=== PATIENT | female | born 1960 | race American Indian/Alaskan Native ===

== ENCOUNTER 2016-12-15 13:27 | Outpatient (CLI) | payer OTHER ==
--- NOTE | 2016-12-15 14:33 | Mammography Report ---
Bilateral mammogram: Compare to 04/25/15. CAD study utilized. Findings: Predominance adipose tissue bilaterally. No mass or microcalcification. Benign axillary nodes. Impression: Benign findings. Annual followup recommended. BI-RADS CATEGORY: 2 = Benign ACR BI-RADS MAMMOGRAPHIC CODES: 0 = Needs additional imaging evaluation; 1 = Negative; 2 = Benign; 3 = Probably benign; 4 = Suspicious; 5 = Malignant; 6 = Known biopsy-proven malignancy COMMENT: 1. Dense breast tissue, i.e., adenosis, fibrocystic changes, etc., may obscure an underlying neoplasm. 2. Approximately 10% of cancers are not detected with mammography. 3. A negative mammography report should not delay biopsy if a clinically suspicious mass is present. COMMENT: Patient follow-up letters are generated in [employer].
== END 2016-12-15 13:28 | disposition home or self-care (01) ==
LOC: MAMMO 13:27
PROVIDERS: ATTEND Internal Medicine
DX: Z12.31 Encounter for screening mammogram for malignant neoplasm of breast (principal)
CPT/HCPCS: 77067; G0202

== ENCOUNTER 2018-01-04 09:56 | Day surgery (SDC) | payer OTHER ==
[~2018-01-04 09:56] MED LIST: ANCEF/STERILE WATER 2 GM/20 ML 2 GM/20 ML SYRINGE IV NR; DEMEROL IV PRN; DILAUDID IV PRN; LACTATED RINGERS 1,000 ML IV SCH; VERSED IV NR; ZOFRAN IV PRN
--- NOTE | 2018-01-04 11:00 | Anesthesia Day of Surgery ---
Anesthesia Day of Surgery - Day of Surgery Patient Examined: Yes Patient H&P Reviewed: Yes Patient is NPO: Yes
--- NOTE | 2018-01-04 11:01 | Anesthesia Consultation ---
Anesthesia Consult and Med Hx Date of service: 01/04/18 - Airway Anesthetic Teeth Evaluation: Edentulous ROM Head & Neck: Adequate Mental/Hyoid Distance: Adequate Mallampati Class: Class II Intubation Access Assessment: Probably Good - Pulmonary Exam CTA: Yes - Cardiac Exam Cardiac Exam: RRR - Pre-Operative Health Status ASA Pre-Surgery Classification: ASA2 Proposed Anesthetic Plan: General (GA with LMA) - Pulmonary Hx Smoking: Yes (/ PPD X 20 YRS) Hx Sleep Apnea: No (DEBBIE PRE SCREEN LOW RISK.) - Cardiovascular System Hx Hypertension: Yes (X 5 YRS) Hx Heart Murmur: Yes (CAUSES NO PROBLEMS) - Endocrine Hx Hypothyroidism: Yes (REMOVAL OF THYROID-NO MEDS) - Hematic Hx Anemia: Yes (NOT RECENT) - Other Systems Hx Cancer: No
--- NOTE | 2018-01-04 11:12 | Post Operative Note ---
Pre-op diagnosis: heme cystitis Post-op diagnosis: same Findings: inflamation lmaede Procedure: cysto cystogram rogstephanie bx Anesthesia: GETElias Surgeon: BERLIN LINARES Estimated blood loss: minimal Pathology: none Condition: stable Disposition: PACU
--- NOTE | 2018-01-04 11:13 | Discharge Summary ---
Short Stay Discharge Plan Activity: other (no straining ) Weight Bearing Status: Full Weight Bearing Diet: low fat, low salt Special Instructions: other (in fluids ) Durable Medical Equipment Needed Upon Discharge: other (mckenna cath care) Additional Instructions: Lo fat, Low Salt Diet. No straining Follow up with: JOSH GILES MD [Primary Care Provider] - 7 Days BERLIN LINARES MD [Staff Physician] - 7 Days Forms: Outpatient Surgery DC Inst.
--- NOTE | 2018-01-04 11:44 | Post Anesthesia Evaluation ---
- Post Anesthesia Evaluation Patient Participated: Yes Airway Patent: Yes Stable Respiratory Function: Yes Nausea/Vomiting: No Temp > 96.8F: Yes Pain Manageable: Yes Adequeate Hydration: Yes Anesthesia Complications: No
[2018-01-04] MEDS ORDERED: DIPRIVAN 10 MG/ML IV ONE (11:59)
[2018-01-04] MEDS ORDERED: WATER FOR IRRIG STERILE IR ONE (12:00)
[2018-01-04] MEDS ORDERED: ANCEF/STERILE WATER 2 GM/20 ML IV NR (12:00)
[2018-01-04] MEDS ORDERED: ROBINUL ONE (12:01)
[2018-01-04] MEDS ORDERED: XYLOCAINE MPF 2% ONE (12:01)
[2018-01-04] MEDS ORDERED: ZOFRAN ONE (12:01)
[2018-01-04] MEDS ORDERED: DECADRON ONE (12:01)
[2018-01-04] MEDS ORDERED: GARAMYCIN ONE (12:07)
[2018-01-04] MEDS ORDERED: SUBLIMAZE ONE (12:16)
[2018-01-04 13:20] VITALS: BP 155/81
--- NOTE | 2018-01-04 13:25 | Operative Report ---
PREOPERATIVE DIAGNOSES: Chronic cystitis, nondiabetic. POSTOPERATIVE DIAGNOSES: Chronic cystitis, nondiabetic. PROCEDURE: Cystoscopy, cystogram, small biopsy, and retrograde. SURGEON: Rodrigo Anguiano MD ANESTHESIA: General. FINDINGS: This is a woman with chronic inflammation, hematuria, foul odor in the urine. She denies pneumaturia. She has been not very compliant. She now presents for cystoscopy. DESCRIPTION OF PROCEDURE: The patient brought to the operating room and placed on the operating table. Following induction of anesthesia, placed in lithotomy position, prepped and draped in sterile fashion. Cystourethroscopy showed a very inflamed bladder with some left exudate and inflammation. I did not see a fistulous tract. This was mostly in the posterior wall. Vaginal examination was initially normal. We did a cystogram. We did not see any reflux. We did not want to fill her up too much because of potential infection. Minimal retrograde showed no persistent filling defect. There was no obvious fistulous tract. It is possible in this inflammation, it is a microscopic area, but did not see it. She did not have pneumaturia. We did not see air on the CT scan. At this point, we irrigated her bladder of this exudate material, I did not see any foreign bodies and we left the catheter. I spoke to the family. Small tiny biopsy was obtained and was cauterized. The patient brought to recovery in stable condition. JOB# [id number] REESE/TD
--- NOTE | 2018-01-04 13:48 | Fluoroscopy Report ---
FLUOROSCOPY RETROGRADE UROGRAPHY: HISTORY: UTI. FINDINGS: Fluoroscopy was provided by radiology during retrograde urography by the urologist. 4 fluoroscopic images were captured. There is adequate filling of the ureters and intrarenal collecting systems with no filling defects or anatomic abnormalities identified. Please correlate with the procedural report if needed. Bladder biopsy was performed per the operative notes. IMPRESSION: Retrograde pyelograms within normal limits.
--- NOTE | 2018-01-04 13:49 | Fluoroscopy Report ---
FLUOROSCOPY CYSTOGRAM STATIC History: UTI. Findings: A single fluoroscopic image of the abdomen was obtained with contrast agent in the bladder. There is no gross bladder filling defects or extravasation. Bladder biopsy was performed per the operative note. Please correlate as needed.
== END 2018-01-04 13:50 | disposition home or self-care (01) ==
LOC: OR 09:56
PROVIDERS: ATTEND Urology
DX: N30.21 Other chronic cystitis with hematuria (principal); N32.89 Other specified disorders of bladder; I10 Essential (primary) hypertension; K21.9 Gastro-esophageal reflux disease without esophagitis; E89.0 Postprocedural hypothyroidism; F17.210 Nicotine dependence, cigarettes, uncomplicated; Z87.440 Personal history of urinary (tract) infections; Z79.899 Other long term (current) drug therapy; Z90.710 Acquired absence of both cervix and uterus; Z86.2 Personal history of diseases of the blood and blood-forming organs and certain disorders involving the immune mechanism
CPT/HCPCS: 52204; 74420; 88305; A4217; C1758; J1100; J1580; J2250; J2405; J2704; J3010; J7120; Q9967; 74430

== ENCOUNTER 2018-05-31 20:17 | Inpatient (IN) | payer OTHER ==
--- NOTE | 2018-05-31 20:32 | Emergency Department Report ---
HPI - General Time Seen by Provider: 05/31/18 20:27 - HPI HPI: Charge nurse triage The patient is a 58-year-old female presenting with a chief complaint of altered mental status. Per EMS family states the patient's last known well time was 05/29/2018. Family reported the patient had been in bed since that time. Family states the patient was "acting weird" following day which included complaining of shortness of breath and slurred speech Location: Mental status Duration: [See above] Quality: Altered Severity: Moderate Modifying factors: [see above] Context: [see above] Mode of transportation: [not driving] ED Past Medical Hx - Past Medical History Hx Hypertension: Yes (X 5 YRS) Hx GERD: Yes Additional medical history: Gout - Surgical History Past Surgical History?: No - Family History Family history: no significant - Social History Smoking Status: Unknown if ever smoked Substance Use Type: Alcohol - Medications Home Medications: Home Medications Medication Instructions Recorded Confirmed Last Taken Type Allopurinol [Zyloprim] 300 mg PO PRN PRN 08/05/17 01/04/18 01/04/18 09:00 History Atenolol [Tenormin] 100 mg PO DAILY 08/05/17 01/04/18 01/04/18 09:00 History Colchicine 0.6 mg PO PRN PRN 08/05/17 01/04/18 01/04/18 09:00 History Ibuprofen [Motrin 800 MG tab] 800 mg PO PRN PRN 08/05/17 12/31/17 Unknown Histor y cloNIDine [Catapres] 0.1 mg PO TID 08/05/17 01/04/18 01/04/18 09:00 History ED Review of Systems ROS: Stated complaint: STROKE Other details as noted in HPI Comment: Unobtainable due to pts medical conditions Physical Exam - Physical Exam Physical Exam: GENERAL: The patient is well-developed well-nourished female lying on stretcher moaning not responding to verbal stimuli. [] HEENT: Normocephalic. Atraumatic. Extraocular motions are intact. Patient has moist mucous membranes. NECK: Supple. Trachea midline CHEST/LUNGS: Clear to auscultation. There is no respiratory distress noted. HEART/CARDIOVASCULAR: Regular. There is no tachycardia. There is no gallop rub or murmur. ABDOMEN: Abdomen is soft, nontender. Patient has normal bowel sounds. There is no abdominal distention. SKIN: There is no rash. There is no edema. There is no diaphoresis. NEURO: The patient is altered and only moans occasionally. Patient does not speak or follow commands. Patient is observed moving all 4 extremities MUSCULOSKELETAL: There is no evidence of acute injury. ED Medical Decision Making - Lab Data Result diagrams: 05/31/18 21:20 05/31/18 21:20 Laboratory Tests 05/31/18 05/31/18 05/31/18 20:50 21:00 21:00 WBC RBC Hgb Hct MCV MCH MCHC RDW Plt Count Lymph % (Auto) [place] % (Auto) Eos % (Auto) Baso % (Auto) Lymph # [place] # Eos # Baso # Seg Neutrophils % Seg Neutrophils # PT INR APTT Thrombin Time Sodium Potassium Chloride BUN Creatinine Estimated GFR BUN/Creatinine Ratio Glucose POC Glucose 195 H Calcium Total Bilirubin ALT Alkaline Phosphatase Ammonia Total Creatine Kinase CK-MB (CK-2) CK-MB (CK-2) Rel Index Troponin T Total Protein Albumin Albumin/Globulin Ratio TSH Free T4 Urine Color Red Urine Turbidity Turbid Urine pH 7.0 Ur Specific [place] 1.020 Urine Protein >500 Urine Glucose (UA) Neg Urine Ketones Tr Urine Blood Lg Urine Nitrite Neg Urine Bilirubin Neg Urine Urobilinogen < 2.0 Ur Leukocyte Esterase Mod Urine WBC (Auto) > 182.0 H Urine RBC (Auto) > 182.0 Urine Bacteria (Auto) 4+ Urine WBC Clumps 2+ Urine Mucus 3+ Urine Opiates Screen Presumptive negative Urine Methadone Screen Presumptive negative Ur Barbiturates Screen Presumptive negative Ur Phencyclidine Scrn Presumptive negative Ur Amphetamines Screen Presumptive negative U Benzodiazepines Scrn Presumptive negative Urine Cocaine Screen Presumptive negative U Marijuana (THC) Screen Presumptive negative Drugs of Abuse Note Disclamer Plasma/Serum Alcohol 05/31/18 05/31/18 05/31/18 21:20 21:20 21:20 WBC 19.6 H RBC 3.00 L Hgb 10.1 Hct 33.5 MCV 112 H MCH 34 H MCHC 30 RDW 16.7 H Plt Count 236 Lymph % (Auto) [employer] [place] % (Auto) [employer] Eos % (Auto) [employer] Executive Baso % (Auto) Global [employer] Executive Lymph # Global [employer] Executive [place] # Global [employer] Executive Eos # Global [employer] Executive Baso # Global [employer] Executive Seg Neutrophils % Global [employer] Executive Seg Neutrophils # Global [employer] Executive PT 22.0 H INR 1.79 H APTT 36.6 Thrombin Time Sodium Potassium Chloride BUN Creatinine Estimated GFR BUN/Creatinine Ratio Glucose POC Glucose Calcium Total Bilirubin ALT Alkaline Phosphatase Ammonia Total Creatine Kinase CK-MB (CK-2) CK-MB (CK-2) Rel Index Troponin T < 0.010 Total Protein Albumin Albumin/Globulin Ratio TSH Free T4 Urine Color Urine Turbidity Urine pH Ur Specific [place] Urine Protein Urine Glucose (UA) Urine Ketones Urine Blood Urine Nitrite Urine Bilirubin Urine Urobilinogen Ur Leukocyte Esterase Urine WBC (Auto) Urine RBC (Auto) Urine Bacteria (Auto) Urine WBC Clumps Urine Mucus Urine Opiates Screen Urine Methadone Screen Ur Barbiturates Screen Ur Phencyclidine Scrn Ur Amphetamines Screen U Benzodiazepines Scrn Urine Cocaine Screen U Marijuana (THC) Screen Drugs of Abuse Note Plasma/Serum Alcohol 05/31/18 05/31/18 05/31/18 21:20 21:20 21:20 WBC RBC Hgb Hct MCV MCH MCHC RDW Plt Count Lymph % (Auto) [place] % (Auto) Eos % (Auto) Baso % (Auto) Lymph # [place] # Eos # Baso # Seg Neutrophils % Seg Neutrophils # PT INR APTT Thrombin Time 18.4 Sodium 136 L Potassium 4.7 Chloride 98.1 BUN 58 H Creatinine 4.7 H Estimated GFR 11 BUN/Creatinine Ratio 12 Glucose 191 H POC Glucose Calcium 7.2 L Total Bilirubin 0.70 ALT 15 Alkaline Phosphatase 190 H Ammonia 392.0 H Total Creatine Kinase 156 H CK-MB (CK-2) 2.8 CK-MB (CK-2) Rel Index 1.7 Troponin T < 0.010 Total Protein 8.3 H Albumin 2.9 L Albumin/Globulin Ratio 0.5 TSH Free T4 Urine Color Urine Turbidity Urine pH Ur Specific [place] Urine Protein Urine Glucose (UA) Urine Ketones Urine Blood Urine Nitrite Urine Bilirubin Urine Urobilinogen Ur Leukocyte Esterase Urine WBC (Auto) Urine RBC (Auto) Urine Bacteria (Auto) Urine WBC Clumps Urine Mucus Urine Opiates Screen Urine Methadone Screen Ur Barbiturates Screen Ur Phencyclidine Scrn Ur Amphetamines Screen U Benzodiazepines Scrn Urine Cocaine Screen U Marijuana (THC) Screen Drugs of Abuse Note Plasma/Serum Alcohol 05/31/18 05/31/18 21:20 21:20 WBC RBC Hgb Hct MCV MCH MCHC RDW Plt Count Lymph % (Auto) [place] % (Auto) Eos % (Auto) Baso % (Auto) Lymph # [place] # Eos # Baso # Seg Neutrophils % Seg Neutrophils # PT INR APTT Thrombin Time Sodium Potassium Chloride BUN Creatinine Estimated GFR BUN/Creatinine Ratio Glucose POC Glucose Calcium Total Bilirubin ALT Alkaline Phosphatase Ammonia Total Creatine Kinase CK-MB (CK-2) CK-MB (CK-2) Rel Index Troponin T Total Protein Albumin Albumin/Globulin Ratio TSH 1.130 Free T4 0.54 L Urine Color Urine Turbidity Urine pH Ur Specific [place] Urine Protein Urine Glucose (UA) Urine Ketones Urine Blood Urine Nitrite Urine Bilirubin Urine Urobilinogen Ur Leukocyte Esterase Urine WBC (Auto) Urine RBC (Auto) Urine Bacteria (Auto) Urine WBC Clumps Urine Mucus Urine Opiates Screen Urine Methadone Screen Ur Barbiturates Screen Ur Phencyclidine Scrn Ur Amphetamines Screen U Benzodiazepines Scrn Urine Cocaine Screen U Marijuana (THC) Screen Drugs of Abuse Note Plasma/Serum Alcohol < 0.01 - EKG Data -: EKG Interpreted by Me EKG shows normal: sinus rhythm Rate: normal - EKG Data When compared to previous EKG there are: previous EKG unavailable Interpretation: nonspecific ST-T wave jim (T-wave inversions in leads 1 and aVL) - Radiology Data Radiology results: report reviewed (CT head), image reviewed (CT head, chest x- ray) interpreted by me: Chest [id number] infiltrate Findings [facility] [address] [place] [address] Cat Scan Report Signed Patient: LEVY BOWIE MR#: [id number] : 1960 Acct:[id number] Age/Sex: 58 / F ADM Date: 05/31/18 Loc: ED Attending Dr: Ordering Physician: GEORGE ANTON MD Date of Service: 05/31/18 Procedure(s): CT head/brain wo con Accession Number(s): [id number] cc: GEORGE ANTON MD PROCEDURE: CT HEAD/BRAIN WO CON TECHNIQUE: Computerized tomography of the head was performed without contrast material. CT DOSE LENGTH PRODUCT: mGycm HISTORY: neuro deficits <6hrs or sx present upon awakening COMPARISONS: None . FINDINGS: Skull and scalp: Normal . Paranasal sinuses: Normal . Ventricles and subarachnoid spaces: Normal . Cerebrum: No evidence of hemorrhage, acute infarction or mass . Cerebellum and brainstem: No evidence of hemorrhage, acute infarction or mass . Vasculature: Normal . IMPRESSION: Normal Examination . Dr. Anton was notified by telephone at 8:54 PM This document is electronically signed by Edgar Brito MD., May 31 2018 08:50:20 PM ET Transcribed By: CO Dictated By: EDGAR BRITO MD Electronically Authenticated By: EDGAR BRITO MD Signed Date/Time: 05/31/182052 DD/ 38 TD/TT: 05/31/182039 - Differential Diagnosis ICH, hypoglycemia, CVA, Critical care attestation.: If time is entered above; I have spent that time in minutes in the direct care of this critically ill patient, excluding procedure time. ED Disposition Clinical Impression: Altered mental status, Hepatic encephalopathy, Renal insufficiency, UTI (urinary tract infection), Pneumonia Disposition: OP ADMIT IP TO THIS HOSP Is pt being admited?: Yes Does the pt Need Aspirin: Yes Condition: Serious Instructions: Bacterial Pneumonia (ED) Referrals: HAVEN PRADO MD [Primary Care Provider] - 3-5 Days Time of Disposition: 22:39 (hospitalist notified (Dr Justin))
--- NOTE | 2018-05-31 20:44 | Consultation ---
History of Present Illness History of present illness: [facility] Impression: Patient with worsening mental status over the last 2 days resulting in obtundation today. Slowly progressive decline would argue against a stroke, but rule out with MRI. Broad differential at this point, though. Not a tpa candidate due to: out of window Not an ROB candidate due to: out of window Differential Diagnosis: 1. Cardioembolic stroke 2. Small vessel disease/lacune 3. Thromboembolic, [id number] mechanism 4. Hypercoagulable state-related infarct 5. Transient ischemic attack 6. Thrombotic mechanism, large artery disease 7. Toxic/metabolic encephalopathy 8. Seizure Comments: Door time: 2012 [facility] contacted: 2016 [facility] at bedside: 2019 NIHSS assessment time: 2031 (pt in CT on log in) Recommendations: MRI brain wo Toxic/metabolic screenig EEG inpatient neurology consultation Inpatient stroke evaluation as per Neurology/ Internal Medicine Discussed with ED MD --------- CC: stroke alert History of Present Illness Patient is a58 year old woman with a history of HTN and gout. Last seen normal 2 days ago. Since then has been laying in bed and having slurred speech. Nephew found her today in the garage on the floor minimally responsive. Diagnostic: CT head wo - nothing acute Exam: NIHSS score: 32 She has eyes closed, just moans, not following commands. Gaze centered. No blink to threat. No oculocephalics. Face symmetric. Flaccid in all limbs. No response to nox stim in any limbs. Medical Decision Making: - Extensive number of diagnosis or management options are considered above. - Extensive amount of complex data reviewed. - High risk of complication and/or morbidity or mortality are associated with differential diagnostic considerations above. - There may be Uncertain outcome and increased probability of prolonged functional impairment or high probability of severe prolonged functional impairment associated with some of these differential diagnosis. Medical Data Reviewed: 1.Data reviewed include clinical labs, radiology, Medical Tests; 2.Tests results discussed w/performing or interpreting physician; 3.Obtaining/reviewing old medical records; 4.Obtaining case history from another source; 5.Independent review of image, tracing or specimen. Patient was informed the Neurology Consult would happen via telehealth (remote video) and consented to receiving care in this manner. Medications and Allergies Allergies Allergy/AdvReac Type Severity Reaction Status Date / Time No Known Allergies Allergy Verified 08/05/17 14:02 Home Medications Medication Instructions Recorded Confirmed Last Taken Type Allopurinol [Zyloprim] 300 mg PO PRN PRN 08/05/17 01/04/18 01/04/18 09:00 History Atenolol [Tenormin] 100 mg PO DAILY 08/05/17 01/04/18 01/04/18 09:00 History Colchicine 0.6 mg PO PRN PRN 08/05/17 01/04/18 01/04/18 09:00 History Ibuprofen [Motrin 800 MG tab] 800 mg PO PRN PRN 08/05/17 12/31/17 Unknown History cloNIDine [Catapres] 0.1 mg PO TID 08/05/17 01/04/18 01/04/18 09:00 History - Level of Consciousness 1a. Level of Consciousness: resp stimuli/obtunded - LOC Questions 1b. LOC Questions: aphasic - LOC Command 1c. LOC Commands: performs no tasks correctly - Best Gaze 2. Best Gaze: normal - Visual 3. Visual: bilateral hemianopia - Facial Palsy 4. Facial Palsy: normal symmetrical movement - Motor Arm 5a. Motor Arm Left: no movement 5b. Motor Arm Right: no movement - Motor Leg 6a. Motor Leg Left: no movement 6b. Motor Leg Right: no movement - Limb Ataxia 7. Limb Ataxia: absent - Sensory 8. Sensory: coma/unresponsive - Best Language 9. Best Language: mute/global aphasia - Dysarthria 10. Dysarthria: mute/anarrthric - Extinction and Inattention 11. Extinction/Inattention: no abnormality - Scoring Total Score: 32 Stroke Severity: Severe Stroke
--- NOTE | 2018-05-31 20:53 | Cat Scan Report ---
PROCEDURE: CT HEAD/BRAIN WO CON TECHNIQUE: Computerized tomography of the head was performed without contrast material. CT DOSE LENGTH PRODUCT: mGycm HISTORY: neuro deficits <6hrs or sx present upon awakening COMPARISONS: None . FINDINGS: Skull and scalp: Normal . Paranasal sinuses: Normal . Ventricles and subarachnoid spaces: Normal . Cerebrum: No evidence of hemorrhage, acute infarction or mass . Cerebellum and brainstem: No evidence of hemorrhage, acute infarction or mass . Vasculature: Normal . IMPRESSION: Normal Examination . Dr. Bacon was notified by telephone at 8:54 PM This document is electronically signed by Edgar Amaro MD., May 31 2018 08:50:20 PM ET
[2018-05-31] MEDS ORDERED: DIPRIVAN 10 MG/ML 1,000 MG/100 ML BOTTLE IV SCH (21:15)
[2018-05-31 21:41] LABS: Bacteria,Urine 4+ /HPF (Negative); Bilirubin,Urine NEG (Negative); Blood,Urine LG (Negative); Color,Urine Red (Yellow); Mucus,Urine 3+ /HPF; Urobilinogen,Urine < 2.0 mg/dL (<2.0)
[2018-05-31 21:42] LABS: Amphetamine Screen,Urine PRESUMPTIVE NEGATIVE; Benzodiazepines Screen,Urine PRESUMPTIVE NEGATIVE; Cannabinoid Screen,Urine PRESUMPTIVE NEGATIVE; Cocaine Screen,Urine PRESUMPTIVE NEGATIVE; Methadone Screen,Urine PRESUMPTIVE NEGATIVE; Opiate Screen,Urine PRESUMPTIVE NEGATIVE
[2018-05-31 21:45] LABS: Protein,Urine >500 mg/dL (Negative); RBC,Urine > 182.0 /HPF (0.0-6.0); WBC,Urine > 182.0 /HPF (0.0-6.0)
[2018-05-31 21:47] LABS: Mean Corpuscular HGB Conc 30 % (30-34); Platelet Count 236 K/mm3 (140-440); Red Cell Distribution Width 16.7 % (13.2-15.2)
[2018-05-31] MEDS ORDERED: ROCEPHIN/NS 2 GM/100 ML 2 GM/100 ML BAG IV ONE (21:47)
[2018-05-31 21:48] LABS: INR 1.79 (0.87-1.13); Partial Thromboplastin Time 36.6 Sec. (24.2-36.6)
[2018-05-31 22:04] LABS: Creatine Kinase MB 2.8 ng/mL (0.0-4.0); Hematocrit 33.5 % (30.3-42.9); Hemoglobin 10.1 gm/dl (10.1-14.3); Mean Corpuscular Volume 112 fl (79-97)
[2018-05-31 22:06] LABS: Alanine Aminotransferase 15 units/L (7-56); Albumin 2.9 g/dL (3.9-5); BUN/Creatinine Ratio 12; Blood Urea Nitrogen 58 mg/dL (7-17); Calcium 7.2 mg/dL (8.4-10.2); Hemolysis Index 46
[2018-05-31 22:11] LABS: Free T4 (Free Thyroxine) 0.54 ng/dL (0.76-1.46)
[2018-05-31 22:43] LABS: Band Neutrophils # (Manual) 7.4 K/mm3; Basophils % (Manual) 0 % (0.0-1.8); Eosinophils % (Manual) 0 % (0.0-4.3); Total Cells Counted 100
[2018-05-31 22:44] LABS: Anisocytosis 1+; Macrocytosis 2+
[2018-05-31 22:45] LABS: Hypochromasia 1+
[2018-05-31] MEDS ORDERED: SODIUM BICARBONATE IV ONE (23:00)
--- NOTE | 2018-05-31 23:24 | XRay Report ---
PROCEDURE: XR CHEST 1V AP TECHNIQUE: Chest radiograph single view. HISTORY: altered mental status COMPARISONS: None . FINDINGS: Heart: Normal. Mediastinum/Vessels: Normal. Lungs/Pleural space: There are left lower lobe pulmonary infiltrates. There are no effusions or pneu mothoraces. Bony thorax: No acute osseous abnormality. Life support devices: None. IMPRESSION: Heart size is normal.. There are left lower lobe pulmonary infiltrates. There are no effusions or pneumothoraces. This document is electronically signed by Edgar Amaro MD., May 31 2018 11:22:01 PM ET
[2018-05-31] MEDS ORDERED: ZOFRAN IV PRN (23:37)
[2018-05-31] MEDS ORDERED: COLCHICINE PO PRN (23:38)
[2018-05-31] MEDS ORDERED: ZYLOPRIM PO PRN (23:38)
[2018-05-31] MEDS: CEPHULAC PR ONE (23:55)
[2018-06-01] MEDS: CEPHULAC PR ONE (03:19)
[2018-06-01] MEDS ORDERED: CEPHULAC PO SCH (06:00)
[2018-06-01] MEDS ORDERED: CATAPRES PO SCH (08:00)
--- NOTE | 2018-06-01 09:11 | History and Physical Report ---
CHIEF COMPLAINT: Change in mental status. HISTORY OF PRESENTING ILLNESS: The patient is a 58-year-old female, brought in by EMS after family found her to be acting strange. The patient was noted to be in good usual normal state of health up to 05/29/2018 and the family started seeing her acting strange, dropping things and behaving in a confused manner. Also the patient was noted to be having slurred speech and shortness of breath and she was brought in for evaluation and one of the family members say that the patient drinks alcohol heavily. PAST MEDICAL HISTORY: Pertinent for hypertension, gastroesophageal reflux disease, gout. PAST SURGICAL HISTORY: Unremarkable. FAMILY HISTORY: Family history is noncontributory. SOCIAL HISTORY: The patient does not smoke, but drinks alcohol heavily and does not use illicit drugs. MEDICATIONS: The patient's home medications include ibuprofen 800 mg by mouth, frequency unknown; allopurinol 300 mg by mouth, frequency unknown; atenolol 100 mg by mouth daily; clonidine 0.1 mg by mouth 3 times daily and colchicine 0.6 mg by mouth, frequency unknown. ALLERGIES: There are no known drug allergies. REVIEW OF SYSTEMS: CONSTITUTIONAL: There is no fever, no chills, no diaphoresis. HEENT: There is no headache or sore throat. CARDIOVASCULAR SYSTEM: There is no chest pain or orthopnea. RESPIRATORY SYSTEM: Shortness of breath is present. There is no cough. GASTROINTESTINAL SYSTEM: There is no nausea, no vomiting, no abdominal pain, diarrhea or constipation. NEUROLOGICAL SYSTEM: Change in mental status noted. Slurred speech noted. No numbness. MUSCULOSKELETAL SYSTEM: There is no joint pain or swelling. DERMATOLOGICAL SYSTEM: There is no skin rash or itching. GENITOURINARY SYSTEM: There is no dysuria, hematuria or flank pain. Rest of system review is normal. PHYSICAL EXAMINATION: GENERAL: At the time of exam, the patient was found to be lethargic, arousable, able to communicate and not in acute distress. VITAL SIGNS: Shows normal temperature with pulse of 86, respiratory rate of 30, blood pressure 125/74, O2 sat of 99% on room air. HEENT: Showed pupils to be equal, round, reactive to light and accommodating. Extraocular muscles are intact. NECK: Neck is supple with no JVD or carotid bruit. CARDIOVASCULAR SYSTEM: Show normal first and second heart sounds with no gallops or murmurs. LUNGS: Show good air entry on both sides of the lungs with no abnormal breath sounds. GASTROINTESTINAL SYSTEM: Show abdomen to be full, soft, nontender with no organomegaly or rigidity. NEUROLOGIC: Neuro exam shows the patient to be lethargic, arousable, confused. No focal deficit. MUSCULOSKELETAL SYSTEM: Show no joint swelling or tenderness. DERMATOLOGIC SYSTEM: Show no skin rash. GENITOURINARY SYSTEM: Showing no costovertebral angle tenderness. PERTINENT LABORATORY AND IMAGING STUDIES: The patient has CT of the head with no contrast done that was normal and also the patient had chest x-ray done and chest x-ray shows possible left lower lobe pneumonia with infiltrates. Lab results; the patient's lab results shows CBC with high white count of 19,600, normal hemoglobin, normal hematocrit with CBC differential showing elevated segmented neutrophil count. The patient's coagulation studies show high INR of 1.79 with elevated PTT of 22. The patient's chemistry show low sodium of 136, low CO2 of ____, elevated BUN of 58 and elevated creatinine of 4.7. The patient's blood glucose was equally high with a value of 191. The patient's ammonia level is very high with a value of 392. The patient's albumin level is low with a value of 2.9. The patient's TSH level was unremarkable. The free T4 is low with a value of 0.54. The patient's urinalysis showed red turbid urine with trace urine ketones, large urine blood, moderate urine leukocyte esterase, high urine WBC of greater than 182, 4+ bacteria with urine toxicology being unremarkable. DIAGNOSES: 1. Hepatic encephalopathy. 2. Left lung pneumonia. 3. Urinary tract infection. 4. Renal insufficiency. PLAN OF CARE: 1. The patient will be admitted to telemetry. 2. The patient will be on neuro check q. 2 hours. 3. The patient will have a Nephrology consult with Dr. Smiley because of renal insufficiency that is likely acute kidney injury. 4. The patient will be on lactulose 20 gram q. 8 hours. 5. The patient will be on IV ceftriaxone 1 gram daily and IV Zithromax 500 mg daily for treatment of pneumonia. 6. The patient will be on 5000 units of heparin subcutaneous q. 12 for deep venous thrombosis prophylaxis and will be on Zofran 4 mg IV every 8 hours as needed for nausea and vomiting. 7. The patient will be on oxygen by nasal cannula 2 liters per minute. JOB# [id number] OCN/NTS
[2018-06-01] MEDS ORDERED: ADRENALIN ONE (10:00)
[2018-06-01] MEDS ORDERED: SODIUM BICARBONATE IV ONE (10:00)
[2018-06-01] MEDS ORDERED: ATROPINE 0.1% (CARDIAC) ONE (10:00)
[2018-06-01] MEDS ORDERED: ZITHROMAX 500 MG in NACL 0.9% 250ML 250 ML IV SCH (10:00)
[2018-06-01] MEDS ORDERED: NON-FORMULARY (Atenolol [Tenormin] 100 MG) PO SCH (10:00)
[2018-06-01] MEDS ORDERED: HEPARIN SUB-Q SCH (10:00)
[2018-06-01] MEDS ORDERED: TENORMIN PO SCH (10:00)
[2018-06-01] MEDS ORDERED: ROCEPHIN/NS 1 GM/50 ML 1 GM/50 ML BAG IV SCH (10:00)
--- NOTE | 2018-06-01 10:01 | Consultation ---
History of Present Illness - Reason for Consult Consult date: 06/01/18 acute renal failure - History of Present Illness This is a 58-year-old -[place] female with past medical history si gnificant for hypertension, gout, nephrolithiasis, and chronic alcohol abuse who presented to the emergency department with progressively worsening altered mental status over the past 3-4 days. Patient is a poor historian at this time and the history was obtained by reviewing the chart as well as discussing with her family who is currently at bedside during my examination. Profoundly her altered mental status and confusion had progressively worsened over the weekend. She has been fairly noncommunicative during this time. Basically just moaning in discomfort and pain. Overall appetite and by mouth intake has been affected during this time period as well. She lives with family. Her last alcoholic drink was on Thursday. Per family she has never had any similar hospitalization in the past. Initial laboratory studies noted and ammonia level of greater than 380. Nephrology was consulted secondary to acute kidney injury. We do not have another baseline creatinine to compare to at this time. Urinalysis is also concerning for possible urinary tract infection and patient is started on IV antibiotics. Patient was evaluated by neurology last night in the emergency room department. Neurology evaluation was reviewed. She underwent also a CT scan of the head. Past History Past Medical History: hypertension, other (nephrolithiasis, gout) Past Surgical History: No surgical history Social history: lives with family, alcohol abuse Family history: hypertension Medications and Allergies Allergies Allergy/AdvReac Type Severity Reaction Status Date / Time No Known Allergies Allergy Verified 08/05/17 14:02 Home Medications Medication Instructions Recorded Confirmed Last Taken Type Allopurinol [Zyloprim] 300 mg PO PRN PRN 08/05/17 01/04/18 01/04/18 09:00 History Atenolol [Tenormin] 100 mg PO DAILY 08/05/17 01/04/18 01/04/18 09:00 History Colchicine 0.6 mg PO PRN PRN 08/05/17 01/04/18 01/04/18 09:00 History Ibuprofen [Motrin 800 MG tab] 800 mg PO PRN PRN 08/05/17 12/31/17 Unknown History cloNIDine [Catapres] 0.1 mg PO TID 08/05/17 01/04/18 01/04/18 09:00 History Active Meds: Active Medications Allopurinol (Zyloprim) 300 mg PO DAILY PRN PRN Reason: Gout Atenolol (Tenormin) 100 mg PO DAILY EMA Clonidine HCl (Catapres) 0.1 mg PO TID EMA Colchicine (Colchicine) 0.6 mg PO DAILY PRN PRN Reason: Gout pain Heparin Sodium (Porcine) (Heparin) 5,000 unit SUB-Q Q12HR EMA Azithromycin 500 mg/ Sodium (Chloride) 250 mls @ 250 mls/hr IV Q24HR EMA Ceftriaxone Sodium (Rocephin/Ns 1 Gm/50 Ml) 1 gm in 50 mls @ 100 mls/hr IV Q24HR EMA; Protocol Lactulose (Cephulac) 20 gm PO Q8HR EMA Last Admin: 06/01/18 06:58 Dose: 20 gm Documented by: Ondansetron HCl (Zofran) 4 mg IV Q8H PRN PRN Reason: Nausea And Vomiting Review of Systems ROS unobtainable: due to mental status Exam - Vital Signs Vital signs: Vital Signs Pulse Resp 87 30 H 05/31/18 20:46 05/31/18 20:46 - General Appearance General appearance: obese, moderate distress, chronically ill, anxious EENT: ATNC, PERRL Neck: Present: neck supple, trachea midline Respiratory: Clear to Ascultation Heart: regular, S1S2 Gastrointestinal: Present: distended Integumentary: no rash, warm and dry Neurologic: confused, disoriented Psychiatric: agitated Results - Lab Results 05/31/18 21:20 05/31/18 21:20 Most recent lab results Calcium 7.2 mg/dL (8.4-10.2) L 05/31/18 21:20 Assessment and Plan - Patient Problems (1) Acute kidney injury Current Visit: Yes Status: Acute Plan to address problem: Likely prerenal in etiology in the setting of the aforementioned UTI, pneumonia and decreased by mouth intake. Rule out possible acute tubular necrosis versus possible acute hepatorenal syndrome, though less likely HRS. We'll obtain a renal ultrasound at this time for further evaluation. We will also order urine electrolytes studies at this time as well as urine protein to creatinine ratio. Avoid any nephrotoxins at this time. We will have patient started on IV fluid hydration. We'll obtain an ABG given her significant metabolic acidemia noted on her serum BMP levels from yesterday night. We will favor to start patient on D5 water with 3 Amps of sodium bicarbonate at a rate of 75 mL an hour. (2) Hepatic encephalopathy Current Visit: Yes Status: Acute Plan to address problem: Started on lactulose therapy. We'll continue to monitor response and repeat ammonia levels. (3) Metabolic acidosis Current Visit: Yes Status: Acute Plan to address problem: The setting of her acute renal injury. We'll also order lactic acid level at this time. We'll also order an ABG for further assessment. We will start p atient on sodium bicarbonate drip as previously mentioned. Monitor daily. (4) Pneumonia Current Visit: Yes Status: Acute Plan to address problem: Please ensure that antibiotics are dosed appropriately for her renal clearance. (5) UTI (urinary tract infection) Current Visit: Yes Status: Acute Plan to address problem: Please initiate antibiotics are dosed appropriately at this time for her given her decreased renal clearance.
[2018-06-01] MEDS ORDERED: NACL 0.9% 500 ML ONE (10:05)
[2018-06-01] MEDS ORDERED: NACL 0.9% 1000 ML ONE (10:05)
--- NOTE | 2018-06-01 10:53 | Event Note ---
Date: 06/01/18 JUDE HUFF was called to the fourth floor. When I arrived the patient was pulseless and had just been intubated by the respiratory therapist. Patient had good color change on the CO2 monitor reveals bilateral breath sounds with good chest rise with bagging. Patient was receiving adequate chest compressions. Patient received 1 amp of epinephrine and order was given to give another amp of epinephrine and an amp of bicarbonate on my arrival. After approximately 2 minutes we did a pulse check and the patient was noted to be in atrial fibril lation. Patient was defibrillated at 200 J with a biphasic Alan. CPR was continued. Patient also given D50 empirically. Hospitalist staff arrived and stated that the labs have been checked and this morning the patient's bicarbonate was 3 and order was made to give 2 additional amps of bicarbonate. The principal physician duties were handed off to the hospitalist. I then went to the emergency department to inquire interosseous gun and return to the patient had returned to spontaneous circulation but I arrived. An IO was placed in the left proximal tibia. There was good return of blood and marrow. Line was able to be flushed.
[2018-06-01] MEDS ORDERED: VANCOMYCIN/NS 1 GM/250 ML 1 GM/250 ML BAG IV SCH (11:00)
[2018-06-01] MEDS ORDERED: SODIUM BICARBONATE 150 MEQ in D5W 1,000 ML IV SCH (11:00)
[2018-06-01] MEDS ORDERED: VANCOMYCIN PHARMACY TO DOSE IV SCH (11:00)
[2018-06-01] MEDS ORDERED: INTROPIN DRIP 800 MG/D5W 250 ML 800 MG/250 ML BAG IV SCH (11:00)
[2018-06-01] MEDS ORDERED: ADRENALIN 8 MG in NACL 0.9% 250ML 242 ML IV ONE (11:00)
--- NOTE | 2018-06-01 11:29 | Event Note ---
Date: 06/01/18 JUDE HUFF was called to the fourth floor. When I arrived ACLS was initiated and patient had been intubated by the respiratory therapist. Patient received multiple round of epinephrene, NaBicarbonate, Ns bolus, calcium chloride, shocked twice and amioderone iv push. After 18 minutes of Acls her pulse returned. Few minutes later she coded again and ACLS again initiated. She was on PEA. Received epinephrene, atropine, bicarbonate, calcium chloride, Mg, started on dopamin drip. Was successful to regain pulse after 2nd caediac arrest. Please see code sheet for details. She was placed on bicarbonate drip, epinephrene drip. She was then transferred to ICU. Stat lab/EKG ordered. Updated family and answered all questions.
[2018-06-01] MEDS ORDERED: LEVOPHED DRIP 4 MG/NS 250 ML 4 MG/250 ML BAG IV ONE (11:34)
[2018-06-01 11:47] LABS: Mean Corpuscular HGB Conc 30 % (30-34); Platelet Count 111 K/mm3 (140-440); Red Blood Count 1.36 M/mm3 (3.65-5.03)
[2018-06-01 11:54] LABS: Mean Corpuscular Volume 111 fl (79-97)
[2018-06-01 11:56] LABS: Hematocrit 15.1 % (30.3-42.9); Hemoglobin 4.6 gm/dl (10.1-14.3)
[2018-06-01 12:05] LABS: BUN/Creatinine Ratio 11; Blood Urea Nitrogen 60 mg/dL (7-17); Hemolysis Index 16
[2018-06-01] MEDS ORDERED: NACL 0.9% 500 ML 500 ML IV NR (12:12)
[2018-06-01] MEDS ORDERED: D50W (25GM) Syringe IV PRN (12:13)
--- NOTE | 2018-06-01 12:22 | Progress Note ---
Assessment and Plan Assessment and plan: 58-year-old woman with past medical history of hypertension, gout, nephrolithiasis, chronic alcohol abuse. She was brought in by family for altered mental status 4 days. She was seen in the ER on 05/31/2008. She was found to have left-sided pneumonia, she was also found to have elevated ammonia level which was 392. She had elevated creatinine of 64.7, BUN of 58, albumin of 3.2, transaminitis, urina lysis showed greater than 182 white blood cells. She received Rocephin and azithromycin for treatment of ammonia. She received 100 mEq of bicarbonate IV push. She was on lactulose 20 every 8 hours. This morning the patient was noted to stiffen up in bed. Started vomiting profusely, shortly after started vomiting the patient had bradycardia, then PEA. She lost a pulse, and received CPR. -She received CPR 3 times. She received multiple rounds of epinephrine, calcium, bicarbonates, she receives IV fluid bolus. She was then put on bicarbonate drip, and 2 pressors -ABG does confirm a severe metabolic acidosis, labs show elevated glucose in the 300s. Her labs also show a drop in her hemoglobin to 4, she was intubated and placed on the ventilator CT head shows no acute findings Chest x-ray confirms left-sided pneumonia Diagnoses Shock Severe sepsis with multiorgan failure UTI Acute kidney injury due to ATN Acute blood loss anemia Suspected acute GI bleed Acute hypoxic respiratory failure Severe metabolic acidosis Hyperglycemia Hypocalcemia Hepatic encephalopathy Acute metabolic encephalopathy Plan -Continue IV fluids, continue patient's on 2 pressors -Expand antibiotics to broad-spectrum, ID consult -Obtain blood and urine cultures -PICC line team to place PICC line, patient currently has IO and peripheral -Started on Protonix drip, 4 units of PRBCs ordered, GI consulted -Continue bicarbonate drip for severe acidosis, insulin drip also ordered the following consultants have been called, nephrology, pulmonology, gastroenterology - CCT 33 minutes - History Interval history: Patient had vomiting earlier this morning, was bilious in nature -No fevers -She remains altered, she was initially confused but after CODE BLUE she has been obtunded -There were no seizures, no focal weakness reported prior to the CODE BLUE Hospitalist Physical - Physical exam Narrative exam: General.: Appears critically ill, toxic appearance HEENT: Moist mucous membranes, extraocular muscles intact, no lymphadenopathy Neck: supple Cardiac: S1-S2 heard Lungs: Decreased air entry, reveals Abdomen: soft , distended Extremities: no edema clubbing or cyanosis Skin: no rash or lesions Neurologic: Patient is obtunded, she is intubated, not on sedation, not respon sive - Constitutional Vitals: Temp Pulse Resp BP Pulse Ox 97.7 F 71 20 148/94 94 06/01/18 08:10 06/01/18 02:36 06/01/18 08:10 06/01/18 08:10 06/01/18 08:18 Results - Labs CBC & Chem 7: 06/01/18 11:33 06/01/18 11:33 Labs: Laboratory Last Values WBC 11.7 K/mm3 (4.5-11.0) H 06/01/18 11:33 RBC 1.36 M/mm3 (3.65-5.03) L 06/01/18 11:33 Hgb 4.6 gm/dl (10.1-14.3) L* D 06/01/18 11:33 Hct 15.1 % (30.3-42.9) L* D 06/01/18 11:33 MCV 111 fl (79-97) H 06/01/18 11:33 MCH 34 pg (28-32) H 06/01/18 11:33 MCHC 30 % (30-34) 06/01/18 11:33 RDW 16.0 % (13.2-15.2) H 06/01/18 11:33 Plt Count 111 K/mm3 (140-440) L 06/01/18 11:33 Lymph % (Auto) [employer] 05/31/18 21:20 [place] % (Auto) [employer] 05/31/18 21:20 Eos % (Auto) [employer] 05/31/18 21:20 Baso % (Auto) [employer] 05/31/18 21:20 Lymph # [employer] 05/31/18 21:20 [place] # [employer] 05/31/18 21:20 Eos # [employer] 05/31/18 21:20 Baso # [employer] 05/31/18 21:20 Add Manual Diff Complete 05/31/18 21:20 Total Counted 100 05/31/18 21:20 Seg Neutrophils % [employer] 05/31/18 21:20 Seg Neuts % (Manual) 48.0 % (40.0-70.0) 05/31/18 21:20 Band Neutrophils % 38.0 % 05/31/18 21:20 Lymphocytes % (Manual) 12.0 % (13.4-35.0) L 05/31/18 21:20 Reactive Lymphs % (Man) 0 % 05/31/18 21:20 Monocytes % (Manual) 2.0 % (0.0-7.3) 05/31/18 21:20 Eosinophils % (Manual) 0 % (0.0-4.3) 05/31/18 21:20 Basophils % (Manual) 0 % (0.0-1.8) 05/31/18 21:20 Metamyelocytes % 0 % 05/31/18 21:20 Myelocytes % 0 % 05/31/18 21: Promyelocytes % 0 % 05/31/18 21:20 Blast Cells % 0 % 05/31/18 21:20 Nucleated RBC % Not Reportable 05/31/18 21:20 Seg Neutrophils # [employer] 05/31/18 21:20 Seg Neutrophils # Man 9.4 K/mm3 (1.8-7.7) H 05/31/18 21:20 Band Neutrophils # 7.4 K/mm3 05/31/18 21:20 Lymphocytes # (Manual) 2.4 K/mm3 (1.2-5.4) 05/31/18 21:20 Abs React Lymphs (Man) 0.0 K/mm3 05/31/18 21:20 Monocytes # (Manual) 0.4 K/mm3 (0.0-0.8) 05/31/18 21:20 Eosinophils # (Manual) 0.0 K/mm3 (0.0-0.4) 05/31/18 21:20 Basophils # (Manual) 0.0 K/mm3 (0.0-0.1) 05/31/18 21:20 Metamyelocytes # 0.0 K/mm3 05/31/18 21:20 Myelocytes # 0.0 K/mm3 05/31/18 21:20 Promyelocytes # 0.0 K/mm3 05/31/18 21:20 Blast Cells # 0.0 K/mm3 05/31/18 21:20 WBC Morphology Not Reportable 05/31/18 21:20 Hypersegmented Neuts Not Reportable 05/31/18 21:20 Hyposegmented Neuts Not Reportable 05/31/18 21:20 Hypogranular Neuts Not Reportable 05/31/18 21:20 Smudge Cells Not Reportable 05/31/18 21:20 Toxic Granulation Not Reportable 05/31/18 21:20 Toxic Vacuolation Not Reportable 05/31/18 21:20 Dohle Bodies Not Reportable 05/31/18 21:20 Pelger-Huet Anomaly Not Reportable 05/31/18 21:20 Marcela Rods Not Reportable 05/31/18 21:20 Platelet Estimate Appears normal 05/31/18 21:20 Clumped Platelets Not Reportable 05/31/18 21:20 Plt Clumps, EDTA Not Reportable 05/31/18 21:20 Large Platelets Not Reportable 05/31/18 21:20 Giant Platelets Not Reportable 05/31/18 21:20 Platelet Satelliting Not Reportable 05/31/18 21:20 Plt Morphology Comment Not Reportable 05/31/18 21:20 RBC Morphology Not Reportable 05/31/18 21:20 Dimorphic RBCs Not Reportable 05/31/18 21:20 Polychromasia Not Reportable 05/31/18 21:20 Hypochromasia 1+ 05/31/18 21:20 Poikilocytosis Not Reportable 05/31/18 21:20 Anisocytosis 1+ 05/31/18 21:20 Microcytosis Not Reportable 05/31/18 21:20 Macrocytosis 2+ 05/31/18 21:20 Spherocytes Not Reportable 05/31/18 21:20 Pappenheimer Bodies Not Reportable 05/31/18 21:20 Sickle Cells Not Reportable 05/31/18 21:20 Target Cells Not Reportable 05/31/18 21:20 Tear Drop Cells Not Reportable 05/31/18 21:20 Ovalocytes Not Reportable 05/31/18 21:20 Helmet Cells Not Reportable 05/31/18 21:20 [place] Bodies Not Reportable 05/31/18 21:20 [place] Rings Not Reportable 05/31/18 21:20 Andrew Cells Not Reportable 05/31/18 21:20 Bite Cells Not Reportable 05/31/18 21:20 Crenated Cell Not Reportable 05/31/18 21:20 Elliptocytes Not Reportable 05/31/18 21:20 Acanthocytes (Spur) Not Reportable 05/31/18 21:20 Rouleaux Not Reportable 05/31/18 21:20 Hemoglobin C Crystals Not Reportable 05/31/18 21:20 Schistocytes Not Reportable 05/31/18 21:20 Malaria parasites Not Reportable 05/31/18 21:20 Vu Bodies Not Reportable 05/31/18 21:20 Hem Pathologist Commnt No 05/31/18 21:20 PT 22.0 Sec. (12.2-14.9) H 05/31/18 21:20 INR 1.79 (0.87-1.13) H 05/31/18 21:20 APTT 36.6 Sec. (24.2-36.6) 05/31/18 21:20 Thrombin Time 18.4 Sec. (15.1-19.6) 05/31/18 21:20 POC ABG pH 6.974 (7.35-7.45) L 06/01/18 11:41 POC ABG pO2 72 (80-105) L 06/01/18 11:41 POC ABG HCO3 4.5 (22-26 mml/L) 06/01/18 11:41 POC ABG Total CO2 5 (23-27mmol/L) 06/01/18 11:41 POC ABG O2 Sat 83 06/01/18 11:41 POC ABG Base Excess -27 ((-2) - (+3)mmol/L) 06/01/18 11:41 FiO2 100 % 06/01/18 11:41 Sodium 136 mmol/L (137-145) L 05/31/18 21:20 Potassium 4.2 mmol/L (3.6-5.0) 06/01/18 11:33 Chloride 101.1 mmol/L (98-107) 06/01/18 11:33 Carbon Dioxide 2 mmol/L (22-30) L* 05/31/18 21:20 Anion Gap 41 mmol/L 05/31/18 21:20 BUN 60 mg/dL (7-17) H 06/01/18 11:33 Creatinine 5.3 mg/dL (0.7-1.2) H 06/01/18 11:33 Estimated GFR 10 ml/min 06/01/18 11:33 BUN/Creatinine Ratio 11 % 06/01/18 11:33 Glucose 378 mg/dL (65-100) H 06/01/18 11:33 POC Glucose 207 (70-105) H 06/01/18 10:29 Calcium 7.2 mg/dL (8.4-10.2) L 05/31/18 21:20 Phosphorus 16.90 mg/dL (2.5-4.5) H 06/01/18 11:33 Magnesium 5.10 mg/dL (1.7-2.3) H 06/01/18 11:33 Total Bilirubin 0.70 mg/dL (0.1-1.2) 05/31/18 21:20 AST 34 units/L (5-40) 05/31/18 21:20 ALT 15 units/L (7-56) 05/31/18 21:20 Alkaline Phosphatase 190 units/L (35-129) H 05/31/18 21:20 Ammonia 614.0 umol/L (25-60) H 06/01/18 11:33 Total Creatine Kinase 156 units/L (30-135) H 05/31/18 21:20 CK-MB (CK-2) 2.8 ng/mL (0.0-4.0) 05/31/18 21:20 CK-MB (CK-2) Rel Index 1.7 (0-4) 05/31/18 21:20 Troponin T < 0.010 ng/mL (0.00-0.029) 05/31/18 21:20 Total Protein 8.3 g/dL (6.3-8.2) H 05/31/18 21:20 Albumin 2.9 g/dL (3.9-5) L 05/31/18 21:20 Albumin/Globulin Ratio 0.5 % 05/31/18 21:20 TSH 1.130 mlU/mL (0.270-4.200) 05/31/18 21:20 Free T4 0.54 ng/dL (0.76-1.46) L 05/31/18 21:20 Urine Color Red (Yellow) 05/31/18 21:00 Urine Turbidity Turbid (Clear) 05/31/18 21:00 Urine pH 7.0 (5.0-7.0) 05/31/18 21:00 Ur Specific [place] 1.020 (1.003-1.030) 05/31/18 21:00 Urine Protein >500 mg/dL (Negative) 05/31/18 21:00 Urine Glucose (UA) Neg mg/dL (Negative) 05/31/18 21:00 Urine Ketones Tr mg/dL (Negative) 05/31/18 21:00 Urine Blood Lg (Negative) 05/31/18 21:00 Urine Nitrite Neg (Negative) 05/31/18 21:00 Urine Bilirubin Neg (Negative) 05/31/18 21:00 Urine Urobilinogen < 2.0 mg/dL (<2.0) 05/31/18 21:00 Ur Leukocyte Esterase Mod (Negative) 05/31/18 21:00 Urine WBC (Auto) > 182.0 /HPF (0.0-6.0) H 05/31/18 21:00 Urine RBC (Auto) > 182.0 /HPF (0.0-6.0) 05/31/18 21:00 Urine Bacteria (Auto) 4+ /HPF (Negative) 05/31/18 21:00 Urine WBC Clumps 2+ /HPF 05/31/18 21:00 Urine Mucus 3+ /HPF 05/31/18 21:00 Urine Opiates Screen Presumptive negative 05/31/18 21:00 Urine Methadone Screen Presumptive negative 05/31/18 21:00 Ur Barbiturates Screen Presumptive negative 05/31/18 21:00 Ur Phencyclidine Scrn Presumptive negative 05/31/18 21:00 Ur Amphetamines Screen Presumptive negative 05/31/18 21:00 U Benzodiazepines Scrn Presumptive negative 05/31/18 21:00 Urine Cocaine Screen Presumptive negative 05/31/18 21:00 U Marijuana (THC) Screen Presumptive negative 05/31/18 21:00 Drugs of Abuse Note Disclamer 05/31/18 21:00 Plasma/Serum Alcohol < 0.01 % (0-0.07) 05/31/18 21:20 Active Medications - Current Medications Current Medications: Generic Name Dose Route Start Last Admin Trade Name Freq PRN Reason Stop Dose Admin Allopurinol 300 mg 05/31/18 23:38 Zyloprim PO DAILY PRN Gout Atenolol 100 mg 06/01/18 10:00 Tenormin PO DAILY EMA Clonidine HCl 0.1 mg 06/01/18 08:00 Catapres PO TID EMA Colchicine 0.6 mg 05/31/18 23:38 Colchicine PO DAILY PRN Gout pain Dextrose 0 ml 06/01/18 12:13 D50w (25gm) Syringe IV PRN PRN Hypoglycemia Heparin Sodium (Porcine) 5,000 unit 06/01/18 10:00 Heparin SUB-Q Q12HR EMA Azithromycin 500 mg/ Sodium 250 mls @ 250 mls/hr 06/01/18 10:00 Chloride IV Q24HR EMA Ceftriaxone Sodium 1 gm in 50 mls @ 100 mls/hr 06/01/18 10:00 Rocephin/Ns 1 Gm/50 Ml IV Q24HR EMA Protocol Sodium Bicarbonate 150 meq/ 1,150 mls @ 75 mls/hr 06/01/18 11:00 Dextrose IV DIRECT EMA Cefepime HCl 1 gm in 100 mls @ 200 mls/hr 06/01/18 13:00 Maxipime/Ns 1 Gm/100 Ml IV Q24H EMA Protocol Metronidazole 500 mg in 100 mls @ 100 mls/hr 06/01/18 14:00 Flagyl 500 Mg/100 Ml IV Q8HR EMA Protocol Dopamine HCl/Dextrose 800 mg in 250 mls @ 3.742 mls/hr 06/01/18 11:00 Intropin Drip 800 Mg/D5w 250 Ml IV TITR EMA Protocol 2 MCG/KG/MIN Vancomycin HCl 2,000 mg/ 540 mls @ 250 mls/hr 06/01/18 15:00 Sodium Chloride IV 06/01/18 17:09 ONCE ONE Sodium Chloride 500 mls @ 0 mls/hr 06/01/18 12:12 Nacl 0.9% 500 Ml IV 06/01/18 23:59 ONCE NR As Directed Pantoprazole Sodium 80 mg/ 100 mls @ 10 mls/hr 06/01/18 13:00 Sodium Chloride IV DIRECT EMA 8 MG/HR Insulin Human Regular 100 100 mls @ 1 mls/hr 06/01/18 13:00 units/ Sodium Chloride IV TITR EMA Protocol 1 UNITS/HR Ondansetron HCl 4 mg 05/31/18 23:37 Zofran IV Q8H PRN Nausea And Vomiting
--- NOTE | 2018-06-01 12:22 | Event Note ---
Code blue note The patient had already coded 2 on the fourth floor earlier this morning. She received CPR 2 weights ROSC -Upon arriving in the ICU, she again lost the pulse and was hypoxic. She received CPR, multiple rounds of epinephrine and bicarbonate. -She regained ROS C, after which she was put on multiple pressors and a bicarbonate drip. Chest x-ray confirmed ET tube at the omari. -ABG showed severe metabolic acidosis, PCO2 was in the 20s and PO2 was in the 70s. And bicarbonate level was 5. -The patient was put on the ventilator, NG tube was sensitive low intermittent suction, stat labs were ordered and performed at the bedside -The patient's family was updated -She remains in critical condition and the prognosis is guarded.
--- NOTE | 2018-06-01 12:25 | XRay Report ---
AP CHEST: HISTORY: Hypoxia An endotracheal tube has been inserted which terminates at the omari very near the orifice of the right mainstem bronchus. Recommend retraction of the endotracheal tube by 3 cm. The nasogastric tube is coiled in the pharynx with its distal tip projecting over the midesophagus. Replacement of nasogastric tube is recommended. There is increased infiltration throughout the left lung since 05/31/18. This could represent increasing infiltrate, congestive changes or possibly atelectatic changes due to a partial right mainstem bronchus intubation. There is no new infiltration in the lateral right lower lobe as well. No large pleural effusion or pneumothorax. Heart size appears within normal limits. IMPRESSION: Recommend adjustment of endotracheal tube and nasogastric tube as described above. Increased left lung infiltration. New right lower lobe infiltration.
[2018-06-01 12:51] LABS: Calcium > 13.0 mg/dL (8.4-10.2)
[2018-06-01] MEDS ORDERED: PROTONIX 80 MG in NACL 0.9% 100 ML IV SCH (13:00)
[2018-06-01] MEDS ORDERED: HumuLIN R 100 UNITS in NACL 0.9% 99 ML IV SCH (13:00)
[2018-06-01] MEDS ORDERED: MAXIPIME/NS 1 GM/100 ML 1 GM/100 ML BAG IV SCH (13:00)
--- NOTE | 2018-06-01 13:08 | Gastroenterology Consultation ---
<MELANIE CHAMBERLAIN - Last Filed: 06/01/18 13:08> History of Present Illness - Reason for Consult Consult date: 06/01/18 GI bleed Requesting physician: LINDSEY VARELA - History of Present Illness Patient is a 58 y/o female with PMH of HTN, gout, nephrolithiasis, and ETOH abuse who was brought to ED by family for AMS. Upon admission she was found to have pneumonia and an elevated ammonia level. Head CT negative. This morning a code blue was called on patient for PEA arrest with CPR x 3 times received. She remains critically ill, in ICU on vent and pressor support being treated for shock, severe sepsis with multiorgan failure, UTI, MEKA, acute hypoxic respiratory failure, severe metabolic acidosis, hyperglycemia, hyocalcemia, hepatic/acute metabolic encephalopathy, and a suspected GI bleed due to recent drop in H/H to which GI has been consulted. History obtained via chart review and by speaking to patient's family in waiting room. They report patient has a history of heavy alcohol use for many years but are unaware of hx of liver disease/cirrhosis. Upon exam, NG tube to LIS w/o bloody drainage and stool is light brown (stool noted on bed pad). Patient with episode of vomiting this am with bilious emesis per nursing. Past History Past Medical History: hypertension, other (nephrolithiasis, gout) Past Surgical History: No surgical history Social history: lives with family, alcohol abuse Family history: hypertension Medications and Allergies Allergies Allergy/AdvReac Type Severity Reaction Status Date / Time No Known Allergies Allergy Verified 08/05/17 14:02 Home Medications Medication Instructions Recorded Confirmed Last Taken Type Allopurinol [Zyloprim] 300 mg PO PRN PRN 08/05/17 01/04/18 01/04/18 09:00 History Atenolol [Tenormin] 100 mg PO DAILY 08/05/17 01/04/18 01/04/18 09:00 History Colchicine 0.6 mg PO PRN PRN 08/05/17 01/04/18 01/04/18 09:00 History Ibuprofen [Motrin 800 MG tab] 800 mg PO PRN PRN 08/05/17 12/31/17 Unknown History cloNIDine [Catapres] 0.1 mg PO TID 08/05/17 01/04/18 01/04/18 09:00 History Active Meds: Active Medications Allopurinol (Zyloprim) 300 mg PO DAILY PRN PRN Reason: Gout Atenolol (Tenormin) 100 mg PO DAILY EMA Clonidine HCl (Catapres) 0.1 mg PO TID EMA Colchicine (Colchicine) 0.6 mg PO DAILY PRN PRN Reason: Gout pain Dextrose (D50w (25gm) Syringe) 0 ml IV PRN PRN PRN Reason: Hypoglycemia Heparin Sodium (Porcine) (Heparin) 5,000 unit SUB-Q Q12HR EMA Azithromycin 500 mg/ Sodium (Chloride) 250 mls @ 250 mls/hr IV Q24HR EMA Ceftriaxone Sodium (Rocephin/Ns 1 Gm/50 Ml) 1 gm in 50 mls @ 100 mls/hr IV Q24HR EMA; Protocol Sodium Bicarbonate 150 meq/ (Dextrose) 1,150 mls @ 75 mls/hr IV DIRECT EMA Cefepime HCl (Maxipime/Ns 1 Gm/100 Ml) 1 gm in 100 mls @ 200 mls/hr IV Q24H EMA; Protocol Metronidazole (Flagyl 500 Mg/100 Ml) 500 mg in 100 mls @ 100 mls/hr IV Q8HR EMA; Protocol Dopamine HCl/Dextrose (Intropin Drip 800 Mg/D5w 250 Ml) 800 mg in 250 mls @ 3.742 mls/hr IV TITR EMA; Protocol Vancomycin HCl 2,000 mg/ (Sodium Chloride) 540 mls @ 250 mls/hr IV ONCE ONE Stop: 06/01/18 17:09 Sodium Chloride (Nacl 0.9% 500 Ml) 500 mls @ 0 mls/hr IV ONCE NR Stop: 06/01/18 23:59 Pantoprazole Sodium 80 mg/ (Sodium Chloride) 100 mls @ 10 mls/hr IV DIRECT EMA Insulin Human Regular 100 (units/ Sodium Chloride) 100 mls @ 1 mls/hr IV TITR EMA; Protocol Ondansetron HCl (Zofran) 4 mg IV Q8H PRN PRN Reason: Nausea And Vomiting medications reviewed/updated as required Review of Systems - Review of Systems ROS unobtainable: due to endotracheal tube, due to mental status Exam - Constitutional Vital Signs: Temp Pulse Resp BP Pulse Ox 97.7 F 71 20 148/94 94 06/01/18 08:10 06/01/18 02:36 06/01/18 08:10 06/01/18 08:10 06/01/18 08:18 General appearance: other (critically ill in ICU on vent and pressor support) - EENT ENT: other (+NG tube -no drainage) - Respiratory Respiratory: bilateral: diminished - Cardiovascular Rhythm: other (bradycardia) - Gastrointestinal General gastrointestinal: Present: soft, non-distended, hypoactive bowel sounds - Labs CBC & Chem 7: 06/01/18 11:33 06/01/18 11:33 Lab Results: Laboratory Results - last 24 hr 05/31/18 05/31/18 05/31/18 20:50 21:00 21:00 WBC RBC Hgb Hct MCV MCH MCHC RDW Plt Count Lymph % (Auto) Bremer % (Auto) Eos % (Auto) Baso % (Auto) Lymph # Bremer # Eos # Baso # Add Manual Diff Total Counted Seg Neutrophils % Seg Neuts % (Manual) Band Neutrophils % Lymphocytes % (Manual) Reactive Lymphs % (Man) Monocytes % (Manual) Eosinophils % (Manual) Basophils % (Manual) Metamyelocytes % Myelocytes % Promyelocytes % Blast Cells % Nucleated RBC % Seg Neutrophils # Seg Neutrophils # Man Band Neutrophils # Lymphocytes # (Manual) Abs React Lymphs (Man) Monocytes # (Manual) Eosinophils # (Manual) Basophils # (Manual) Metamyelocytes # Myelocytes # Promyelocytes # Blast Cells # WBC Morphology Hypersegmented Neuts Hyposegmented Neuts Hypogranular Neuts Smudge Cells Toxic Granulation Toxic Vacuolation Dohle Bodies Pelger-Huet Anomaly Marcela Rods Platelet Estimate Clumped Platelets Plt Clumps, EDTA Large Platelets Giant Platelets Platelet Satelliting Plt Morphology Comment RBC Morphology Dimorphic RBCs Polychromasia Hypochromasia Poikilocytosis Anisocytosis Microcytosis Macrocytosis Spherocytes Pappenheimer Bodies Sickle Cells Target Cells Tear Drop Cells Ovalocytes Helmet Cells [place] Bodies [place] Rings Andrew Cells Bite Cells Crenated Cell Elliptocytes Acanthocytes (Spur) Rouleaux Hemoglobin C Crystals Schistocytes Malaria parasites Vu Bodies Hem Pathologist Commnt PT INR APTT Thrombin Time POC ABG pH POC ABG pO2 POC ABG HCO3 POC ABG Total CO2 POC ABG O2 Sat POC ABG Base Excess FiO2 Sodium Potassium Chloride Carbon Dioxide Anion Gap BUN Creatinine Estimated GFR BUN/Creatinine Ratio Glucose POC Glucose 195 H Calcium Phosphorus Magnesium Total Bilirubin AST ALT Alkaline Phosphatase Ammonia Total Creatine Kinase CK-MB (CK-2) CK-MB (CK-2) Rel Index Troponin T Total Protein Albumin Albumin/Globulin Ratio TSH Free T4 Urine Color Red Urine Turbidity Turbid Urine pH 7.0 Ur Specific [place] 1.020 Urine Protein >500 Urine Glucose (UA) Neg Urine Ketones Tr Urine Blood Lg Urine Nitrite Neg Urine Bilirubin Neg Urine Urobilinogen < 2.0 Ur Leukocyte Esterase Mod Urine WBC (Auto) > 182.0 H Urine RBC (Auto) > 182.0 Urine Bacteria (Auto) 4+ Urine WBC Clumps 2+ Urine Mucus 3+ Urine Opiates Screen Presumptive negative Urine Methadone Screen Presumptive negative Ur Barbiturates Screen Presumptive negative Ur Phencyclidine Scrn Presumptive negative Ur Amphetamines Screen Presumptive negative U Benzodiazepines Scrn Presumptive negative Urine Cocaine Screen Presumptive negative U Marijuana (THC) Screen Presumptive negative Drugs of Abuse Note Disclamer Plasma/Serum Alcohol 05/31/18 05/31/18 05/31/18 21:20 21:20 21:20 WBC 19.6 H RBC 3.00 L Hgb 10.1 Hct 33.5 MCV 112 H MCH 34 H MCHC 30 RDW 16.7 H Plt Count 236 Lymph % (Auto) Machines Technician Bremer % (Auto) Machines Technician Eos % (Auto) Machines Technician Baso % (Auto) Machines Technician Lymph # Machines Technician Bremer # Machines Technician Eos # Machines Technician Baso # Machines Technician Add Manual Diff Complete Total Counted 100 Seg Neutrophils % Machines Technician Seg Neuts % (Manual) 48.0 Band Neutrophils % 38.0 Lymphocytes % (Manual) 12.0 L Reactive Lymphs % (Man) 0 Monocytes % (Manual) 2.0 Eosinophils % (Manual) 0 Basophils % (Manual) 0 Metamyelocytes % 0 Myelocytes % 0 Promyelocytes % 0 Blast Cells % 0 Nucleated RBC % Not Reportable Seg Neutrophils # Machines Technician Seg Neutrophils # Man 9.4 H Band Neutrophils # 7.4 Lymphocytes # (Manual) 2.4 Abs React Lymphs (Man) 0.0 Monocytes # (Manual) 0.4 Eosinophils # (Manual) 0.0 Basophils # (Manual) 0.0 Metamyelocytes # 0.0 Myelocytes # 0.0 Promyelocytes # 0.0 Blast Cells # 0.0 WBC Morphology Not Reportable Hypersegmented Neuts Not Reportable Hyposegmented Neuts Not Reportable Hypogranular Neuts Not Reportable Smudge Cells Not Reportable Toxic Granulation Not Reportable Toxic Vacuolation Not Reportable Dohle Bodies Not Reportable Pelger-Huet Anomaly Not Reportable Amrcela Rods Not Reportable Platelet Estimate Appears normal Clumped Platelets Not Reportable Plt Clumps, EDTA Not Reportable Large Platelets Not Reportable Giant Platelets Not Reportable Platelet Satelliting Not Reportable Plt Morphology Comment Not Reportable RBC Morphology Not Reportable Dimorphic RBCs Not Reportable Polychromasia Not Reportable Hypochromasia 1+ Poikilocytosis Not Reportable Anisocytosis 1+ Microcytosis Not Reportable Macrocytosis 2+ Spherocytes Not Reportable Pappenheimer Bodies Not Reportable Sickle Cells Not Reportable Target Cells Not Reportable Tear Drop Cells Not Reportable Ovalocytes Not Reportable Helmet Cells Not Reportable [place] Bodies Not Reportable [place] Rings Not Reportable Mounds Cells Not Reportable Bite Cells Not Reportable Crenated Cell Not Reportable Elliptocytes Not Reportable Acanthocytes (Spur) Not Reportable Rouleaux Not Reportable Hemoglobin C Crystals Not Reportable Schistocytes Not Reportable Malaria parasites Not Reportable Vu Bodies Not Reportable Hem Pathologist Commnt No PT 22.0 H INR 1.79 H APTT 36.6 Thrombin Time POC ABG pH POC ABG pO2 POC ABG HCO3 POC ABG Total CO2 POC ABG O2 Sat POC ABG Base Excess FiO2 Sodium Potassium Chloride Carbon Dioxide Anion Gap BUN Creatinine Estimated GFR BUN/Creatinine Ratio Glucose POC Glucose Calcium Phosphorus Magnesium Total Bilirubin AST ALT Alkaline Phosphatase Ammonia Total Creatine Kinase CK-MB (CK-2) CK-MB (CK-2) Rel Index Troponin T < 0.010 Total Protein Albumin Albumin/Globulin Ratio TSH Free T4 Urine Color Urine Turbidity Urine pH Ur Specific [place] Urine Protein Urine Glucose (UA) Urine Ketones Urine Blood Urine Nitrite Urine Bilirubin Urine Urobilinogen Ur Leukocyte Esterase Urine WBC (Auto) Urine RBC (Auto) Urine Bacteria (Auto) Urine WBC Clumps Urine Mucus Urine Opiates Screen Urine Methadone Screen Ur Barbiturates Screen Ur Phencyclidine Scrn Ur Amphetamines Screen U Benzodiazepines Scrn Urine Cocaine Screen U Marijuana (THC) Screen Drugs of Abuse Note Plasma/Serum Alcohol 05/31/18 05/31/18 05/31/18 21:20 21:20 21:20 WBC RBC Hgb Hct MCV MCH MCHC RDW Plt Count Lymph % (Auto) Bremer % (Auto) Eos % (Auto) Baso % (Auto) Lymph # Bremer # Eos # Baso # Add Manual Diff Total Counted Seg Neutrophils % Seg Neuts % (Manual) Band Neutrophils % Lymphocytes % (Manual) Reactive Lymphs % (Man) Monocytes % (Manual) Eosinophils % (Manual) Basophils % (Manual) Metamyelocytes % Myelocytes % Promyelocytes % Blast Cells % Nucleated RBC % Seg Neutrophils # Seg Neutrophils # Man Band Neutrophils # Lymphocytes # (Manual) Abs React Lymphs (Man) Monocytes # (Manual) Eosinophils # (Manual) Basophils # (Manual) Metamyelocytes # Myelocytes # Promyelocytes # Blast Cells # WBC Morphology Hypersegmented Neuts Hyposegmented Neuts Hypogranular Neuts Smudge Cells Toxic Granulation Toxic Vacuolation Dohle Bodies Pelger-Huet Anomaly Marcela Rods Platelet Estimate Clumped Platelets Plt Clumps, EDTA Large Platelets Giant Platelets Platelet Satelliting Plt Morphology Comment RBC Morphology Dimorphic RBCs Polychromasia Hypochromasia Poikilocytosis Anisocytosis Microcytosis Macrocytosis Spherocytes Pappenheimer Bodies Sickle Cells Target Cells Tear Drop Cells Ovalocytes Helmet Cells [place] Bodies [place] Rings Andrew Cells Bite Cells Crenated Cell Elliptocytes Acanthocytes (Spur) Rouleaux Hemoglobin C Crystals Schistocytes Malaria parasites Vu Bodies Hem Pathologist Commnt PT INR APTT Thrombin Time 18.4 POC ABG pH POC ABG pO2 POC ABG HCO3 POC ABG Total CO2 POC ABG O2 Sat POC ABG Base Excess FiO2 Sodium 136 L Potassium 4.7 Chloride 98.1 Carbon Dioxide 2 L* Anion Gap 41 BUN 58 H Creatinine 4.7 H Estimated GFR 11 BUN/Creatinine Ratio 12 Glucose 191 H POC Glucose Calcium 7.2 L Phosphorus Magnesium Total Bilirubin 0.70 AST 34 ALT 15 Alkaline Phosphatase 190 H Ammonia 392.0 H Total Creatine Kinase 156 H CK-MB (CK-2) 2.8 CK-MB (CK-2) Rel Index 1.7 Troponin T < 0.010 Total Protein 8.3 H Albumin 2.9 L Albumin/Globulin Ratio 0.5 TSH Free T4 Urine Color Urine Turbidity Urine pH Ur Specific [place] Urine Protein Urine Glucose (UA) Urine Ketones Urine Blood Urine Nitrite Urine Bilirubin Urine Urobilinogen Ur Leukocyte Esterase Urine WBC (Auto) Urine RBC (Auto) Urine Bacteria (Auto) Urine WBC Clumps Urine Mucus Urine Opiates Screen Urine Methadone Screen Ur Barbiturates Screen Ur Phencyclidine Scrn Ur Amphetamines Screen U Benzodiazepines Scrn Urine Cocaine Screen U Marijuana (THC) Screen Drugs of Abuse Note Plasma/Serum Alcohol 05/31/18 05/31/18 06/01/18 21:20 21:20 10:29 WBC RBC Hgb Hct MCV MCH MCHC RDW Plt Count Lymph % (Auto) Bre[place] % (Auto) Eos % (Auto) Baso % (Auto) Lymph # Bremer # Eos # Baso # Add Manual Diff Total Counted Seg Neutrophils % Seg Neuts % (Manual) Band Neutrophils % Lymphocytes % (Manual) Reactive Lymphs % (Man) Monocytes % (Manual) Eosinophils % (Manual) Basophils % (Manual) Metamyelocytes % Myelocytes % Promyelocytes % Blast Cells % Nucleated RBC % Seg Neutrophils # Seg Neutrophils # Man Band Neutrophils # Lymphocytes # (Manual) Abs React Lymphs (Man) Monocytes # (Manual) Eosinophils # (Manual) Basophils # (Manual) Metamyelocytes # Myelocytes # Promyelocytes # Blast Cells # WBC Morphology Hypersegmented Neuts Hyposegmented Neuts Hypogranular Neuts Smudge Cells Toxic Granulation Toxic Vacuolation Dohle Bodies Pelger-Huet Anomaly Marcela Rods Platelet Estimate Clumped Platelets Plt Clumps, EDTA Large Platelets Giant Platelets Platelet Satelliting Plt Morphology Comment RBC Morphology Dimorphic RBCs Polychromasia Hypochromasia Poikilocytosis Anisocytosis Microcytosis Macrocytosis Spherocytes Pappenheimer Bodies Sickle Cells Target Cells Tear Drop Cells Ovalocytes Helmet Cells [place] Bodies [place] Rings Andrew Cells Bite Cells Crenated Cell Elliptocytes Acanthocytes (Spur) Rouleaux Hemoglobin C Crystals Schistocytes Malaria parasites Vu Bodies Hem Pathologist Commnt PT INR APTT Thrombin Time POC ABG pH POC ABG pO2 POC ABG HCO3 POC ABG Total CO2 POC ABG O2 Sat POC ABG Base Excess FiO2 Sodium Potassium Chloride Carbon Dioxide Anion Gap BUN Creatinine Estimated GFR BUN/Creatinine Ratio Glucose POC Glucose 207 H Calcium Phosphorus Magnesium Total Bilirubin AST ALT Alkaline Phosphatase Ammonia Total Creatine Kinase CK-MB (CK-2) CK-MB (CK-2) Rel Index Troponin T Total Protein Albumin Albumin/Globulin Ratio TSH 1.130 Free T4 0.54 L Urine Color Urine Turbidity Urine pH Ur Specific [place] Urine Protein Urine Glucose (UA) Urine Ketones Urine Blood Urine Nitrite Urine Bilirubin Urine Urobilinogen Ur Leukocyte Esterase Urine WBC (Auto) Urine RBC (Auto) Urine Bacteria (Auto) Urine WBC Clumps Urine Mucus Urine Opiates Screen Urine Methadone Screen Ur Barbiturates Screen Ur Phencyclidine Scrn Ur Amphetamines Screen U Benzodiazepines Scrn Urine Cocaine Screen U Marijuana (THC) Screen Drugs of Abuse Note Plasma/Serum Alcohol < 0.01 06/01/18 06/01/18 06/01/18 11:33 11:33 11:33 WBC 11.7 H RBC 1.36 L Hgb 4.6 L* D Hct 15.1 L* D MCV 111 H MCH 34 H MCHC 30 RDW 16.0 H Plt Count 111 L Lymph % (Auto) Bremer % (Auto) Eos % (Auto) Baso % (Auto) Lymph # Bremer # Eos # Baso # Add Manual Diff Total Counted Seg Neutrophils % Seg Neuts % (Manual) Band Neutrophils % Lymphocytes % (Manual) Reactive Lymphs % (Man) Monocytes % (Manual) Eosinophils % (Manual) Basophils % (Manual) Metamyelocytes % Myelocytes % Promyelocytes % Blast Cells % Nucleated RBC % Seg Neutrophils # Seg Neutrophils # Man Band Neutrophils # Lymphocytes # (Manual) Abs React Lymphs (Man) Monocytes # (Manual) Eosinophils # (Manual) Basophils # (Manual) Metamyelocytes # Myelocytes # Promyelocytes # Blast Cells # WBC Morphology Hypersegmented Neuts Hyposegmented Neuts Hypogranular Neuts Smudge Cells Toxic Granulation Toxic Vacuolation Dohle Bodies Pelger-Huet Anomaly Marcela Rods Platelet Estimate Clumped Platelets Plt Clumps, EDTA Large Platelets Giant Platelets Platelet Satelliting Plt Morphology Comment RBC Morphology Dimorphic RBCs Polychromasia Hypochromasia Poikilocytosis Anisocytosis Microcytosis Macrocytosis Spherocytes Pappenheimer Bodies Sickle Cells Target Cells Tear Drop Cells Ovalocytes Helmet Cells [place] Bodies [place] Rings Andrew Cells Bite Cells Crenated Cell Elliptocytes Acanthocytes (Spur) Rouleaux Hemoglobin C Crystals Schistocytes Malaria parasites Vu Bodies Hem Pathologist Commnt PT INR APTT Thrombin Time POC ABG pH POC ABG pO2 POC ABG HCO3 POC ABG Total CO2 POC ABG O2 Sat POC ABG Base Excess FiO2 Sodium 151 H D Potassium 4.2 Chloride 101.1 Carbon Dioxide 5 L* Anion Gap 49 BUN 60 H Creatinine 5.3 H Estimated GFR 10 BUN/Creatinine Ratio 11 Glucose 378 H POC Glucose Calcium > 13.0 H* D Phosphorus 16.90 H Magnesium 5.10 H Total Bilirubin AST ALT Alkaline Phosphatase Ammonia 614.0 H Total Creatine Kinase CK-MB (CK-2) CK-MB (CK-2) Rel Index Troponin T Total Protein Albumin Albumin/Globulin Ratio TSH Free T4 Urine Color Urine Turbidity Urine pH Ur Specific [place] Urine Protein Urine Glucose (UA) Urine Ketones Urine Blood Urine Nitrite Urine Bilirubin Urine Urobilinogen Ur Leukocyte Esterase Urine WBC (Auto) Urine RBC (Auto) Urine Bacteria (Auto) Urine WBC Clumps Urine Mucus Urine Opiates Screen Urine Methadone Screen Ur Barbiturates Screen Ur Phencyclidine Scrn Ur Amphetamines Screen U Benzodiazepines Scrn Urine Cocaine Screen U Marijuana (THC) Screen Drugs of Abuse Note Plasma/Serum Alcohol 06/01/18 11:41 WBC RBC Hgb Hct MCV MCH MCHC RDW Plt Count Lymph % (Auto) Bremer % (Auto) Eos % (Auto) Baso % (Auto) Lymph # Bremer # Eos # Baso # Add Manual Diff Total Counted Seg Neutrophils % Seg Neuts % (Manual) Band Neutrophils % Lymphocytes % (Manual) Reactive Lymphs % (Man) Monocytes % (Manual) Eosinophils % (Manual) Basophils % (Manual) Metamyelocytes % Myelocytes % Promyelocytes % Blast Cells % Nucleated RBC % Seg Neutrophils # Seg Neutrophils # Man Band Neutrophils # Lymphocytes # (Manual) Abs React Lymphs (Man) Monocytes # (Manual) Eosinophils # (Manual) Basophils # (Manual) Metamyelocytes # Myelocytes # Promyelocytes # Blast Cells # WBC Morphology Hypersegmented Neuts Hyposegmented Neuts Hypogranular Neuts Smudge Cells Toxic Granulation Toxic Vacuolation Dohle Bodies Pelger-Huet Anomaly Marcela Rods Platelet Estimate Clumped Platelets Plt Clumps, EDTA Large Platelets Giant Platelets Platelet Satelliting Plt Morphology Comment RBC Morphology Dimorphic RBCs Polychromasia Hypochromasia Poikilocytosis Anisocytosis Microcytosis Macrocytosis Spherocytes Pappenheimer Bodies Sickle Cells Target Cells Tear Drop Cells Ovalocytes Helmet Cells [place] Bodies [place] Rings Andrew Cells Bite Cells Crenated Cell Elliptocytes Acanthocytes (Spur) Rouleaux Hemoglobin C Crystals Schistocytes Malaria parasites Vu Bodies Hem Pathologist Commnt PT INR APTT Thrombin Time POC ABG pH 6.974 L POC ABG pO2 72 L POC ABG HCO3 4.5 POC ABG Total CO2 5 POC ABG O2 Sat 83 POC ABG Base Excess -27 FiO2 100 Sodium Potassium Chloride Carbon Dioxide Anion Gap BUN Creatinine Estimated GFR BUN/Creatinine Ratio Glucose POC Glucose Calcium Phosphorus Magnesium Total Bilirubin AST ALT Alkaline Phosphatase Ammonia Total Creatine Kinase CK-MB (CK-2) CK-MB (CK-2) Rel Index Troponin T Total Protein Albumin Albumin/Globulin Ratio TSH Free T4 Urine Color Urine Turbidity Urine pH Ur Specific [place] Urine Protein Urine Glucose (UA) Urine Ketones Urine Blood Urine Nitrite Urine Bilirubin Urine Urobilinogen Ur Leukocyte Esterase Urine WBC (Auto) Urine RBC (Auto) Urine Bacteria (Auto) Urine WBC Clumps Urine Mucus Urine Opiates Screen Urine Methadone Screen Ur Barbiturates Screen Ur Phencyclidine Scrn Ur Amphetamines Screen U Benzodiazepines Scrn Urine Cocaine Screen U Marijuana (THC) Screen Drugs of Abuse Note Plasma/Serum Alcohol Assessment and Plan 1.anemia/GI bleed? -INR 1.79 -H/H 4.6/15.1 (on admission 10.1/33.5)- blood transfusion pending -continue to monitor H/H and transfuse as needed -no active signs of bleeding (NG tube with no bloody drainage; stool brown) -etiology unclear -no plans to scope at this time given no evidence of GI bleeding -recommend repeat H/H -will order abd CT to r/o retroperitoneal bleed -hold blood thinning medications -continue PPI and supportive care 2.ETOH abuse 3.elevated ammonia level -ammonia 614-trending up -continue empiric lactulose -continue supportive care -will follow <GABY GEORGE R - Last Filed: 06/01/18 14:19> Medications and Allergies Active Meds: Active Medications Allopurinol (Zyloprim) 300 mg PO DAILY PRN PRN Reason: Gout Atenolol (Tenormin) 100 mg PO DAILY EMA Clonidine HCl (Catapres) 0.1 mg PO TID EMA Colchicine (Colchicine) 0.6 mg PO DAILY PRN PRN Reason: Gout pain Dextrose (D50w (25gm) Syringe) 0 ml IV PRN PRN PRN Reason: Hypoglycemia Heparin Sodium (Porcine) (Heparin) 5,000 unit SUB-Q Q12HR EMA Azithromycin 500 mg/ Sodium (Chloride) 250 mls @ 250 mls/hr IV Q24HR EMA Ceftriaxone Sodium (Rocephin/Ns 1 Gm/50 Ml) 1 gm in 50 mls @ 100 mls/hr IV Q24HR EMA; Protocol Sodium Bicarbonate 150 meq/ (Dextrose) 1,150 mls @ 75 mls/hr IV DIRECT EMA Cefepime HCl (Maxipime/Ns 1 Gm/100 Ml) 1 gm in 100 mls @ 200 mls/hr IV Q24H EMA; Protocol Metronidazole (Flagyl 500 Mg/100 Ml) 500 mg in 100 mls @ 100 mls/hr IV Q8HR EMA; Protocol Dopamine HCl/Dextrose (Intropin Drip 800 Mg/D5w 250 Ml) 800 mg in 250 mls @ 3.742 mls/hr IV TITR EMA; Protocol Vancomycin HCl 2,000 mg/ (Sodium Chloride) 540 mls @ 250 mls/hr IV ONCE ONE Stop: 06/01/18 17:09 Sodium Chloride (Nacl 0.9% 500 Ml) 500 mls @ 0 mls/hr IV ONCE NR Stop: 06/01/18 23:59 Pantoprazole Sodium 80 mg/ (Sodium Chloride) 100 mls @ 10 mls/hr IV DIRECT EMA Insulin Human Regular 100 (units/ Sodium Chloride) 100 mls @ 1 mls/hr IV TITR EMA; Protocol Phenylephrine HCl 100 mg/ (Sodium Chloride) 100 mls @ 3 mls/hr IV TITR EMA; Protocol Methylprednisolone Sodium Succinate (Solu-Medrol) 125 mg IV Q8HR EMA Ondansetron HCl (Zofran) 4 mg IV Q8H PRN PRN Reason: Nausea And Vomiting Exam - Constitutional Vital Signs: Temp Pulse Resp BP Pulse Ox 97.7 F 71 20 148/94 94 06/01/18 08:10 06/01/18 02:36 06/01/18 08:10 06/01/18 08:10 06/01/18 08:18 - Labs CBC & Chem 7: 06/01/18 11:33 06/01/18 12:45 Lab Results: Laboratory Results - last 24 hr 05/31/18 05/31/18 05/31/18 20:50 21:00 21:00 WBC RBC Hgb Hct MCV MCH MCHC RDW Plt Count Lymph % (Auto) Bremer % (Auto) Eos % (Auto) Baso % (Auto) Lymph # Bremer # Eos # Baso # Add Manual Diff Total Counted Seg Neutrophils % Seg Neuts % (Manual) Band Neutrophils % Lymphocytes % (Manual) Reactive Lymphs % (Man) Monocytes % (Manual) Eosinophils % (Manual) Basophils % (Manual) Metamyelocytes % Myelocytes % Promyelocytes % Blast Cells % Nucleated RBC % Seg Neutrophils # Seg Neutrophils # Man Band Neutrophils # Lymphocytes # (Manual) Abs React Lymphs (Man) Monocytes # (Manual) Eosinophils # (Manual) Basophils # (Manual) Metamyelocytes # Myelocytes # Promyelocytes # Blast Cells # WBC Morphology Hypersegmented Neuts Hyposegmented Neuts Hypogranular Neuts Smudge Cells Toxic Granulation Toxic Vacuolation Dohle Bodies Pelger-Huet Anomaly Marcela Rods Platelet Estimate Clumped Platelets Plt Clumps, EDTA Large Platelets Giant Platelets Platelet Satelliting Plt Morphology Comment RBC Morphology Dimorphic RBCs Polychromasia Hypochromasia Poikilocytosis Anisocytosis Microcytosis Macrocytosis Spherocytes Pappenheimer Bodies Sickle Cells Target Cells Tear Drop Cells Ovalocytes Helmet Cells [place] Bodies [place] Rings Mounds Cells Bite Cells Crenated Cell Elliptocytes Acanthocytes (Spur) Rouleaux Hemoglobin C Crystals Schistocytes Malaria parasites Vu Bodies Hem Pathologist Commnt PT INR APTT Thrombin Time POC ABG pH POC ABG pCO2 POC ABG pO2 POC ABG HCO3 POC ABG Total CO2 POC ABG O2 Sat POC ABG Base Excess FiO2 Sodium Potassium Chloride Carbon Dioxide Anion Gap BUN Creatinine Estimated GFR BUN/Creatinine Ratio Glucose POC Glucose 195 H Lactic Acid Calcium Phosphorus Magnesium Total Bilirubin AST ALT Alkaline Phosphatase Ammonia Total Creatine Kinase CK-MB (CK-2) CK-MB (CK-2) Rel Index Troponin T Total Protein Albumin Albumin/Globulin Ratio TSH Free T4 Thyroxine (T4) Urine Color Red Urine Turbidity Turbid Urine pH 7.0 Ur Specific [place] 1.020 Urine Protein >500 Urine Glucose (UA) Neg Urine Ketones Tr Urine Blood Lg Urine Nitrite Neg Urine Bilirubin Neg Urine Urobilinogen < 2.0 Ur Leukocyte Esterase Mod Urine WBC (Auto) > 182.0 H Urine RBC (Auto) > 182.0 Urine Bacteria (Auto) 4+ Urine WBC Clumps 2+ Urine Mucus 3+ Urine Opiates Screen Presumptive negative Urine Methadone Screen Presumptive negative Ur Barbiturates Screen Presumptive negative Ur Phencyclidine Scrn Presumptive negative Ur Amphetamines Screen Presumptive negative U Benzodiazepines Scrn Presumptive negative Urine Cocaine Screen Presumptive negative U Marijuana (THC) Screen Presumptive negative Drugs of Abuse Note Disclamer Plasma/Serum Alcohol Blood Type Antibody Screen Crossmatch 05/31/18 05/31/18 05/31/18 21:20 21:20 21:20 WBC 19.6 H RBC 3.00 L Hgb 10.1 Hct 33.5 MCV 112 H MCH 34 H MCHC 30 RDW 16.7 H Plt Count 236 Lymph % (Auto) Machines Technician Bremer % (Auto) Machines Technician Eos % (Auto) Machines Technician Baso % (Auto) Machines Technician Lymph # Machines Technician Bremer # Machines Technician Eos # Machines Technician Baso # Machines Technician Add Manual Diff Complete Total Counted 100 Seg Neutrophils % Machines Technician Seg Neuts % (Manual) 48.0 Band Neutrophils % 38.0 Lymphocytes % (Manual) 12.0 L Reactive Lymphs % (Man) 0 Monocytes % (Manual) 2.0 Eosinophils % (Manual) 0 Basophils % (Manual) 0 Metamyelocytes % 0 Myelocytes % 0 Promyelocytes % 0 Blast Cells % 0 Nucleated RBC % Not Reportable Seg Neutrophils # Machines Technician Seg Neutrophils # Man 9.4 H Band Neutrophils # 7.4 Lymphocytes # (Manual) 2.4 Abs React Lymphs (Man) 0.0 Monocytes # (Manual) 0.4 Eosinophils # (Manual) 0.0 Basophils # (Manual) 0.0 Metamyelocytes # 0.0 Myelocytes # 0.0 Promyelocytes # 0.0 Blast Cells # 0.0 WBC Morphology Not Reportable Hypersegmented Neuts Not Reportable Hyposegmented Neuts Not Reportable Hypogranular Neuts Not Reportable Smudge Cells Not Reportable Toxic Granulation Not Reportable Toxic Vacuolation Not Reportable Dohle Bodies Not Reportable Pelger-Huet Anomaly Not Reportable Marcela Rods Not Reportable Platelet Estimate Appears normal Clumped Platelets Not Reportable Plt Clumps, EDTA Not Reportable Large Platelets Not Reportable Giant Platelets Not Reportable Platelet Satelliting Not Reportable Plt Morphology Comment Not Reportable RBC Morphology Not Reportable Dimorphic RBCs Not Reportable Polychromasia Not Reportable Hypochromasia 1+ Poikilocytosis Not Reportable Anisocytosis 1+ Microcytosis Not Reportable Macrocytosis 2+ Spherocytes Not Reportable Pappenheimer Bodies Not Reportable Sickle Cells Not Reportable Target Cells Not Reportable Tear Drop Cells Not Reportable Ovalocytes Not Reportable Helmet Cells Not Reportable [place] Bodies Not Reportable [place] Rings Not Reportable Mounds Cells Not Reportable Bite Cells Not Reportable Crenated Cell Not Reportable Elliptocytes Not Reportable Acanthocytes (Spur) Not Reportable Rouleaux Not Reportable Hemoglobin C Crystals Not Reportable Schistocytes Not Reportable Malaria parasites Not Reportable Vu Bodies Not Reportable Hem Pathologist Commnt No PT 22.0 H INR 1.79 H APTT 36.6 Thrombin Time POC ABG pH POC ABG pCO2 POC ABG pO2 POC ABG HCO3 POC ABG Total CO2 POC ABG O2 Sat POC ABG Base Excess FiO2 Sodium Potassium Chloride Carbon Dioxide Anion Gap BUN Creatinine Estimated GFR BUN/Creatinine Ratio Glucose POC Glucose Lactic Acid Calcium Phosphorus Magnesium Total Bilirubin AST ALT Alkaline Phosphatase Ammonia Total Creatine Kinase CK-MB (CK-2) CK-MB (CK-2) Rel Index Troponin T < 0.010 Total Protein Albumin Albumin/Globulin Ratio TSH Free T4 Thyroxine (T4) Urine Color Urine Turbidity Urine pH Ur Specific [place] Urine Protein Urine Glucose (UA) Urine Ketones Urine Blood Urine Nitrite Urine Bilirubin Urine Urobilinogen Ur Leukocyte Esterase Urine WBC (Auto) Urine RBC (Auto) Urine Bacteria (Auto) Urine WBC Clumps Urine Mucus Urine Opiates Screen Urine Methadone Screen Ur Barbiturates Screen Ur Phencyclidine Scrn Ur Amphetamines Screen U Benzodiazepines Scrn Urine Cocaine Screen U Marijuana (THC) Screen Drugs of Abuse Note Plasma/Serum Alcohol Blood Type Antibody Screen Crossmatch 05/31/18 05/31/18 05/31/18 21:20 21:20 21:20 WBC RBC Hgb Hct MCV MCH MCHC RDW Plt Count Lymph % (Auto) Bre[place] % (Auto) Eos % (Auto) Baso % (Auto) Lymph # Bremer # Eos # Baso # Add Manual Diff Total Counted Seg Neutrophils % Seg Neuts % (Manual) Band Neutrophils % Lymphocytes % (Manual) Reactive Lymphs % (Man) Monocytes % (Manual) Eosinophils % (Manual) Basophils % (Manual) Metamyelocytes % Myelocytes % Promyelocytes % Blast Cells % Nucleated RBC % Seg Neutrophils # Seg Neutrophils # Man Band Neutrophils # Lymphocytes # (Manual) Abs React Lymphs (Man) Monocytes # (Manual) Eosinophils # (Manual) Basophils # (Manual) Metamyelocytes # Myelocytes # Promyelocytes # Blast Cells # WBC Morphology Hypersegmented Neuts Hyposegmented Neuts Hypogranular Neuts Smudge Cells Toxic Granulation Toxic Vacuolation Dohle Bodies Pelger-Huet Anomaly Marcela Rods Platelet Estimate Clumped Platelets Plt Clumps, EDTA Large Platelets Giant Platelets Platelet Satelliting Plt Morphology Comment RBC Morphology Dimorphic RBCs Polychromasia Hypochromasia Poikilocytosis Anisocytosis Microcytosis Macrocytosis Spherocytes Pappenheimer Bodies Sickle Cells Target Cells Tear Drop Cells Ovalocytes Helmet Cells [place] Bodies [place] Rings Mounds Cells Bite Cells Crenated Cell Elliptocytes Acanthocytes (Spur) Rouleaux Hemoglobin C Crystals Schistocytes Malaria parasites Vu Bodies Hem Pathologist Commnt PT INR APTT Thrombin Time 18.4 POC ABG pH POC ABG pCO2 POC ABG pO2 POC ABG HCO3 POC ABG Total CO2 POC ABG O2 Sat POC ABG Base Excess FiO2 Sodium 136 L Potassium 4.7 Chloride 98.1 Carbon Dioxide 2 L* Anion Gap 41 BUN 58 H Creatinine 4.7 H Estimated GFR 11 BUN/Creatinine Ratio 12 Glucose 191 H POC Glucose Lactic Acid Calcium 7.2 L Phosphorus Magnesium Total Bilirubin 0.70 AST 34 ALT 15 Alkaline Phosphatase 190 H Ammonia 392.0 H Total Creatine Kinase 156 H CK-MB (CK-2) 2.8 CK-MB (CK-2) Rel Index 1.7 Troponin T < 0.010 Total Protein 8.3 H Albumin 2.9 L Albumin/Globulin Ratio 0.5 TSH Free T4 Thyroxine (T4) Urine Color Urine Turbidity Urine pH Ur Specific [place] Urine Protein Urine Glucose (UA) Urine Ketones Urine Blood Urine Nitrite Urine Bilirubin Urine Urobilinogen Ur Leukocyte Esterase Urine WBC (Auto) Urine RBC (Auto) Urine Bacteria (Auto) Urine WBC Clumps Urine Mucus Urine Opiates Screen Urine Methadone Screen Ur Barbiturates Screen Ur Phencyclidine Scrn Ur Amphetamines Screen U Benzodiazepines Scrn Urine Cocaine Screen U Marijuana (THC) Screen Drugs of Abuse Note Plasma/Serum Alcohol Blood Type Antibody Screen Crossmatch 05/31/18 05/31/18 06/01/18 21:20 21:20 10:29 WBC RBC Hgb Hct MCV MCH MCHC RDW Plt Count Lymph % (Auto) Bremer % (Auto) Eos % (Auto) Baso % (Auto) Lymph # Bremer # Eos # Baso # Add Manual Diff Total Counted Seg Neutrophils % Seg Neuts % (Manual) Band Neutrophils % Lymphocytes % (Manual) Reactive Lymphs % (Man) Monocytes % (Manual) Eosinophils % (Manual) Basophils % (Manual) Metamyelocytes % Myelocytes % Promyelocytes % Blast Cells % Nucleated RBC % Seg Neutrophils # Seg Neutrophils # Man Band Neutrophils # Lymphocytes # (Manual) Abs React Lymphs (Man) Monocytes # (Manual) Eosinophils # (Manual) Basophils # (Manual) Metamyelocytes # Myelocytes # Promyelocytes # Blast Cells # WBC Morphology Hypersegmented Neuts Hyposegmented Neuts Hypogranular Neuts Smudge Cells Toxic Granulation Toxic Vacuolation Dohle Bodies Pelger-Huet Anomaly Marcela Rods Platelet Estimate Clumped Platelets Plt Clumps, EDTA Large Platelets Giant Platelets Platelet Satelliting Plt Morphology Comment RBC Morphology Dimorphic RBCs Polychromasia Hypochromasia Poikilocytosis Anisocytosis Microcytosis Macrocytosis Spherocytes Pappenheimer Bodies Sickle Cells Target Cells Tear Drop Cells Ovalocytes Helmet Cells [place] Bodies [place] Rings Mounds Cells Bite Cells Crenated Cell Elliptocytes Acanthocytes (Spur) Rouleaux Hemoglobin C Crystals Schistocytes Malaria parasites Vu Bodies Hem Pathologist Commnt PT INR APTT Thrombin Time POC ABG pH POC ABG pCO2 POC ABG pO2 POC ABG HCO3 POC ABG Total CO2 POC ABG O2 Sat POC ABG Base Excess FiO2 Sodium Potassium Chloride Carbon Dioxide Anion Gap BUN Creatinine Estimated GFR BUN/Creatinine Ratio Glucose POC Glucose 207 H Lactic Acid Calcium Phosphorus Magnesium Total Bilirubin AST ALT Alkaline Phosphatase Ammonia Total Creatine Kinase CK-MB (CK-2) CK-MB (CK-2) Rel Index Troponin T Total Protein Albumin Albumin/Globulin Ratio TSH 1.130 Free T4 0.54 L Thyroxine (T4) Urine Color Urine Turbidity Urine pH Ur Specific [place] Urine Protein Urine Glucose (UA) Urine Ketones Urine Blood Urine Nitrite Urine Bilirubin Urine Urobilinogen Ur Leukocyte Esterase Urine WBC (Auto) Urine RBC (Auto) Urine Bacteria (Auto) Urine WBC Clumps Urine Mucus Urine Opiates Screen Urine Methadone Screen Ur Barbiturates Screen Ur Phencyclidine Scrn Ur Amphetamines Screen U Benzodiazepines Scrn Urine Cocaine Screen U Marijuana (THC) Screen Drugs of Abuse Note Plasma/Serum Alcohol < 0.01 Blood Type Antibody Screen Crossmatch 06/01/18 06/01/18 06/01/18 11:33 11:33 11:33 WBC 11.7 H RBC 1.36 L Hgb 4.6 L* D Hct 15.1 L* D MCV 111 H MCH 34 H MCHC 30 RDW 16.0 H Plt Count 111 L Lymph % (Auto) Bremer % (Auto) Eos % (Auto) Baso % (Auto) Lymph # Bremer # Eos # Baso # Add Manual Diff Total Counted Seg Neutrophils % Seg Neuts % (Manual) Band Neutrophils % Lymphocytes % (Manual) Reactive Lymphs % (Man) Monocytes % (Manual) Eosinophils % (Manual) Basophils % (Manual) Metamyelocytes % Myelocytes % Promyelocytes % Blast Cells % Nucleated RBC % Seg Neutrophils # Seg Neutrophils # Man Band Neutrophils # Lymphocytes # (Manual) Abs React Lymphs (Man) Monocytes # (Manual) Eosinophils # (Manual) Basophils # (Manual) Metamyelocytes # Myelocytes # Promyelocytes # Blast Cells # WBC Morphology Hypersegmented Neuts Hyposegmented Neuts Hypogranular Neuts Smudge Cells Toxic Granulation Toxic Vacuolation Dohle Bodies Pelger-Huet Anomaly Marcela Rods Platelet Estimate Clumped Platelets Plt Clumps, EDTA Large Platelets Giant Platelets Platelet Satelliting Plt Morphology Comment RBC Morphology Dimorphic RBCs Polychromasia Hypochromasia Poikilocytosis Anisocytosis Microcytosis Macrocytosis Spherocytes Pappenheimer Bodies Sickle Cells Target Cells Tear Drop Cells Ovalocytes Helmet Cells [place] Bodies [place] Rings Andrew Cells Bite Cells Crenated Cell Elliptocytes Acanthocytes (Spur) Rouleaux Hemoglobin C Crystals Schistocytes Malaria parasites Vu Bodies Hem Pathologist Commnt PT INR APTT Thrombin Time POC ABG pH POC ABG pCO2 POC ABG pO2 POC ABG HCO3 POC ABG Total CO2 POC ABG O2 Sat POC ABG Base Excess FiO2 Sodium 151 H D Potassium 4.2 Chloride 101.1 Carbon Dioxide 5 L* Anion Gap 49 BUN 60 H Creatinine 5.3 H Estimated GFR 10 BUN/Creatinine Ratio 11 Glucose 378 H POC Glucose Lactic Acid Calcium > 13.0 H* D Phosphorus 16.90 H Magnesium 5.10 H Total Bilirubin AST ALT Alkaline Phosphatase Ammonia 614.0 H Total Creatine Kinase CK-MB (CK-2) CK-MB (CK-2) Rel Index Troponin T Total Protein Albumin Albumin/Globulin Ratio TSH Free T4 Thyroxine (T4) Urine Color Urine Turbidity Urine pH Ur Specific [place] Urine Protein Urine Glucose (UA) Urine Ketones Urine Blood Urine Nitrite Urine Bilirubin Urine Urobilinogen Ur Leukocyte Esterase Urine WBC (Auto) Urine RBC (Auto) Urine Bacteria (Auto) Urine WBC Clumps Urine Mucus Urine Opiates Screen Urine Methadone Screen Ur Barbiturates Screen Ur Phencyclidine Scrn Ur Amphetamines Screen U Benzodiazepines Scrn Urine Cocaine Screen U Marijuana (THC) Screen Drugs of Abuse Note Plasma/Serum Alcohol Blood Type Antibody Screen Crossmatch 06/01/18 06/01/18 06/01/18 11:41 12:45 12:45 WBC RBC Hgb Hct MCV MCH MCHC RDW Plt Count Lymph % (Auto) Bre[place] % (Auto) Eos % (Auto) Baso % (Auto) Lymph # Bremer # Eos # Baso # Add Manual Diff Total Counted Seg Neutrophils % Seg Neuts % (Manual) Band Neutrophils % Lymphocytes % (Manual) Reactive Lymphs % (Man) Monocytes % (Manual) Eosinophils % (Manual) Basophils % (Manual) Metamyelocytes % Myelocytes % Promyelocytes % Blast Cells % Nucleated RBC % Seg Neutrophils # Seg Neutrophils # Man Band Neutrophils # Lymphocytes # (Manual) Abs React Lymphs (Man) Monocytes # (Manual) Eosinophils # (Manual) Basophils # (Manual) Metamyelocytes # Myelocytes # Promyelocytes # Blast Cells # WBC Morphology Hypersegmented Neuts Hyposegmented Neuts Hypogranular Neuts Smudge Cells Toxic Granulation Toxic Vacuolation Dohle Bodies Pelger-Huet Anomaly Marcela Rods Platelet Estimate Clumped Platelets Plt Clumps, EDTA Large Platelets Giant Platelets Platelet Satelliting Plt Morphology Comment RBC Morphology Dimorphic RBCs Polychromasia Hypochromasia Poikilocytosis Anisocytosis Microcytosis Macrocytosis Spherocytes Pappenheimer Bodies Sickle Cells Target Cells Tear Drop Cells Ovalocytes Helmet Cells [place] Bodies [place] Rings Mounds Cells Bite Cells Crenated Cell Elliptocytes Acanthocytes (Spur) Rouleaux Hemoglobin C Crystals Schistocytes Malaria parasites Vu Bodies Hem Pathologist Commnt PT INR APTT Thrombin Time POC ABG pH 6.974 L POC ABG pCO2 POC ABG pO2 72 L POC ABG HCO3 4.5 POC ABG Total CO2 5 POC ABG O2 Sat 83 POC ABG Base Excess -27 FiO2 100 Sodium 153 H Potassium 4.7 Chloride 97.6 L Carbon Dioxide 8 L* Anion Gap 52 BUN 61 H Creatinine 5.3 H Estimated GFR 10 BUN/Creatinine Ratio 12 Glucose 451 H POC Glucose Lactic Acid Calcium 10.3 H D Phosphorus 17.20 H Magnesium 5.00 H Total Bilirubin AST ALT Alkaline Phosphatase Ammonia Total Creatine Kinase CK-MB (CK-2) CK-MB (CK-2) Rel Index Troponin T Total Protein Albumin Albumin/Globulin Ratio TSH Free T4 Thyroxine (T4) Urine Color Urine Turbidity Urine pH Ur Specific [place] Urine Protein Urine Glucose (UA) Urine Ketones Urine Blood Urine Nitrite Urine Bilirubin Urine Urobilinogen Ur Leukocyte Esterase Urine WBC (Auto) Urine RBC (Auto) Urine Bacteria (Auto) Urine WBC Clumps Urine Mucus Urine Opiates Screen Urine Methadone Screen Ur Barbiturates Screen Ur Phencyclidine Scrn Ur Amphetamines Screen U Benzodiazepines Scrn Urine Cocaine Screen U Marijuana (THC) Screen Drugs of Abuse Note Plasma/Serum Alcohol Blood Type Antibody Screen Crossmatch 06/01/18 06/01/18 06/01/18 12:46 12:50 12:50 WBC RBC Hgb Hct MCV MCH MCHC RDW Plt Count Lymph % (Auto) [place] % (Auto) Eos % (Auto) Baso % (Auto) Lymph # Bremer # Eos # Baso # Add Manual Diff Total Counted Seg Neutrophils % Seg Neuts % (Manual) Band Neutrophils % Lymphocytes % (Manual) Reactive Lymphs % (Man) Monocytes % (Manual) Eosinophils % (Manual) Basophils % (Manual) Metamyelocytes % Myelocytes % Promyelocytes % Blast Cells % Nucleated RBC % Seg Neutrophils # Seg Neutrophils # Man Band Neutrophils # Lymphocytes # (Manual) Abs React Lymphs (Man) Monocytes # (Manual) Eosinophils # (Manual) Basophils # (Manual) Metamyelocytes # Myelocytes # Promyelocytes # Blast Cells # WBC Morphology Hypersegmented Neuts Hyposegmented Neuts Hypogranular Neuts Smudge Cells Toxic Granulation Toxic Vacuolation Dohle Bodies Pelger-Huet Anomaly Marcela Rods Platelet Estimate Clumped Platelets Plt Clumps, EDTA Large Platelets Giant Platelets Platelet Satelliting Plt Morphology Comment RBC Morphology Dimorphic RBCs Polychromasia Hypochromasia Poikilocytosis Anisocytosis Microcytosis Macrocytosis Spherocytes Pappenheimer Bodies Sickle Cells Target Cells Tear Drop Cells Ovalocytes Helmet Cells [place] Bodies [place] Rings Mounds Cells Bite Cells Crenated Cell Elliptocytes Acanthocytes (Spur) Rouleaux Hemoglobin C Crystals Schistocytes Malaria parasites Vu Bodies Hem Pathologist Commnt PT INR APTT Thrombin Time POC ABG pH POC ABG pCO2 POC ABG pO2 POC ABG HCO3 POC ABG Total CO2 POC ABG O2 Sat POC ABG Base Excess FiO2 Sodium Potassium Chloride Carbon Dioxide Anion Gap BUN Creatinine Estimated GFR BUN/Creatinine Ratio Glucose POC Glucose Lactic Acid 24.20 H* Calcium Phosphorus Magnesium Total Bilirubin AST ALT Alkaline Phosphatase Ammonia Total Creatine Kinase CK-MB (CK-2) CK-MB (CK-2) Rel Index Troponin T Total Protein Albumin Albumin/Globulin Ratio TSH Free T4 Thyroxine (T4) 2.0 L Urine Color Urine Turbidity Urine pH Ur Specific [place] Urine Protein Urine Glucose (UA) Urine Ketones Urine Blood Urine Nitrite Urine Bilirubin Urine Urobilinogen Ur Leukocyte Esterase Urine WBC (Auto) Urine RBC (Auto) Urine Bacteria (Auto) Urine WBC Clumps Urine Mucus Urine Opiates Screen Urine Methadone Screen Ur Barbiturates Screen Ur Phencyclidine Scrn Ur Amphetamines Screen U Benzodiazepines Scrn Urine Cocaine Screen U Marijuana (THC) Screen Drugs of Abuse Note Plasma/Serum Alcohol Blood Type A POSITIVE Antibody Screen Negative Crossmatch See Detail 06/01/18 12:59 WBC RBC Hgb Hct MCV MCH MCHC RDW Plt Count Lymph % (Auto) [place] % (Auto) Eos % (Auto) Baso % (Auto) Lymph # Bremer # Eos # Baso # Add Manual Diff Total Counted Seg Neutrophils % Seg Neuts % (Manual) Band Neutrophils % Lymphocytes % (Manual) Reactive Lymphs % (Man) Monocytes % (Manual) Eosinophils % (Manual) Basophils % (Manual) Metamyelocytes % Myelocytes % Promyelocytes % Blast Cells % Nucleated RBC % Seg Neutrophils # Seg Neutrophils # Man Band Neutrophils # Lymphocytes # (Manual) Abs React Lymphs (Man) Monocytes # (Manual) Eosinophils # (Manual) Basophils # (Manual) Metamyelocytes # Myelocytes # Promyelocytes # Blast Cells # WBC Morphology Hypersegmented Neuts Hyposegmented Neuts Hypogranular Neuts Smudge Cells Toxic Granulation Toxic Vacuolation Dohle Bodies Pelger-Huet Anomaly Marcela Rods Platelet Estimate Clumped Platelets Plt Clumps, EDTA Large Platelets Giant Platelets Platelet Satelliting Plt Morphology Comment RBC Morphology Dimorphic RBCs Polychromasia Hypochromasia Poikilocytosis Anisocytosis Microcytosis Macrocytosis Spherocytes Pappenheimer Bodies Sickle Cells Target Cells Tear Drop Cells Ovalocytes Helmet Cells [place] Bodies [place] Rings Andrew Cells Bite Cells Crenated Cell Elliptocytes Acanthocytes (Spur) Rouleaux Hemoglobin C Crystals Schistocytes Malaria parasites Vu Bodies Hem Pathologist Commnt PT INR APTT Thrombin Time POC ABG pH 7.103 L POC ABG pCO2 36.9 POC ABG pO2 228 H POC ABG HCO3 11.6 POC ABG Total CO2 13 POC ABG O2 Sat 100 POC ABG Base Excess -18 FiO2 100 Sodium Potassium Chloride Carbon Dioxide Anion Gap BUN Creatinine Estimated GFR BUN/Creatinine Ratio Glucose POC Glucose Lactic Acid Calcium Phosphorus Magnesium Total Bilirubin AST ALT Alkaline Phosphatase Ammonia Total Creatine Kinase CK-MB (CK-2) CK-MB (CK-2) Rel Index Troponin T Total Protein Albumin Albumin/Globulin Ratio TSH Free T4 Thyroxine (T4) Urine Color Urine Turbidity Urine pH Ur Specific [place] Urine Protein Urine Glucose (UA) Urine Ketones Urine Blood Urine Nitrite Urine Bilirubin Urine Urobilinogen Ur Leukocyte Esterase Urine WBC (Auto) Urine RBC (Auto) Urine Bacteria (Auto) Urine WBC Clumps Urine Mucus Urine Opiates Screen Urine Methadone Screen Ur Barbiturates Screen Ur Phencyclidine Scrn Ur Amphetamines Screen U Benzodiazepines Scrn Urine Cocaine Screen U Marijuana (THC) Screen Drugs of Abuse Note Plasma/Serum Alcohol Blood Type Antibody Screen Crossmatch Assessment and Plan Pt seen and examined. Critically ill, in ICU. Doing poorly, even on multiple pressors. Etiology of acute drop in H/H unclear. Pt has hx of EtOH abuse, but LFTs normal, and plt count normal on admit. For now, management as per ICU, and defer GI evaluation until pt stable, or unless evidence of active GI blood loss.
[2018-06-01 13:13] LABS: Calcium 10.3 mg/dL (8.4-10.2)
[2018-06-01] MEDS ORDERED: FLAGYL 500 MG/100 ML 500 MG/100 ML BAG IV SCH (14:00)
[2018-06-01] MEDS ORDERED: NEO-SYNEPHRINE 100 MG in NACL 0.9% 90 ML IV SCH (14:15)
[2018-06-01 14:25] LABS: Total Cells Counted 100
[2018-06-01 14:26] LABS: Band Neutrophils # (Manual) 0.9 K/mm3; Basophils % (Manual) 0 % (0.0-1.8); Eosinophils % (Manual) 0 % (0.0-4.3); Macrocytosis 1+; Platelet Estimate Consistent w Auto
[2018-06-01 14:29] VITALS: BP 96/45
[2018-06-01] MEDS ORDERED: VERSED IV ONE (14:47)
[2018-06-01] MEDS ORDERED: VANCOMYCIN 2,000 MG in NACL 0.9% 500 ML 500 ML IV ONE (15:00)
--- NOTE | 2018-06-01 15:07 | Death Summary ---
Summary - Providers Date of service: 06/01/18 Consults: 06/01/18 06:48 Consult to Physician [CONS] Routine Comment: Consulting Provider: MELISSA CANTOR Physician Instructions: Reason For Exam: MEKA 06/01/18 10:41 Consult to Physician [CONS] Routine Comment: Consulting Provider: TOMMY SIDHU Physician Instructions: Reason For Exam: acutte respiratory 06/01/18 10:43 Consult to Physician [CONS] Routine Comment: Consulting Provider: KORI ROTHMAN Physician Instructions: Reason For Exam: sepsis 06/01/18 10:44 Consult to PICC Line RN [CONS] Stat Reason For Exam: pressors Type Line:: PICC 06/01/18 12:12 Consult to Physician [CONS] Routine Comment: Consulting Provider: ODILIA WILLIAMSON Physician Instructions: Reason For Exam: gi bleed 06/01/18 12:45 PICC Line Insertion [Consult to PICC Line RN] [CONS] Stat Reason For Exam: Pressors Type Line:: PICC Attending: PATRICE METZGER - summary Date of admission: 05/31/18 23:29 Date of : 06/01/18 Significant findings: Patient was admitted almost midnight on 05/31/[address] Justin and the next day on 06/01/18. Patient is a 58-year-old woman with a history of hypertension, gout, kidney stones and alcohol abuse who presented to [facility] ED on 05/31/18 for AMS. She was found to have left-sided pneumonia, UTI, elevated ammonia level which was 392, ARF with severe metabolic acidosis, HCO3 on only 2. She had elevated creatinine of 4.7, BUN of 58, albumin of 3.2, transaminitis, WBC of 19.6. She received Rocephin and azithromycin for treatment of pneumonia. She received 100 mEq of bicarbonate IV push. She was on lactulose. She was admitted to telemetry by Dr. Justin. Early in the morning, the patient started vomiting profusely, shortly after vomiting the patient had bradycardia, then PEA/CODE Blue. ACLS protocol was performed. She was intubated. She had ROSC but had multiple cardiac arrests until the family made her DNR and then she . The exact initial reason that lead to her is uncertain but the end result was severe acidosis. She had fix and dilated pupils no heart tones, no gag, no breath tones, no corneal reflex I pronounced 4:38pm Cause of most likely: ARF with severe metabolic acidosis Diagnoses Shock Severe sepsis with multiorgan failure UTI Acute kidney injury due to ATN Acute blood loss anemia Suspected acute GI bleed Acute hypoxic respiratory failure Severe metabolic acidosis Severe Lactic acidosis Hyperglycemia Hypocalcemia Hepatic encephalopathy Acute metabolic encephalopathy time of discharge 32 minutes
[2018-06-01] MEDS ORDERED: SOLU-Medrol IV SCH (22:00)
--- NOTE | 2018-06-02 00:22 | Event Note ---
Date: 06/01/18 Came to assess the patient per Dr. Monzon request as he was responding another code blue in the ICU on different patient. Patient noted to be iva down at low 40-30s. Repeat lab showed severe anemia with Hb ~4.6, Cr >5.3, Co2 ~8, with pH 6.9, Na 153, lactic acid ~ 24 Patient already on three pressors, full ventilator support, unresponsive and on bicarbonate drip ordered for transfusion but has not received yet, GI consulted Ordered for 4th pressor, family members were at bedside Discussed with family and updated about patient's critical condition with multiorgan failure leading to very poor prognosis and possible anoxic encephalopathy. Patient already had cardiac arrest x3 Family then decided for DNR, Dr. Monzon informed.
== END 2018-06-01 19:00 | DRG 871 ==
LOC: ED 20:17 → 4A 23:29 → CC1 06-01 10:46
PROVIDERS: ADMIT Internal Medicine; ATTEND Internal Medicine
PROC: 4A033R1 Measurement of Arterial Saturation, Peripheral, Percutaneous Approach (ICD-10-PCS; principal; 2018-06-01)
PROC: 5A1935Z Respiratory Ventilation, Less than 24 Consecutive Hours (ICD-10-PCS; 2018-06-01)
PROC: 0BH17EZ Insertion of Endotracheal Airway into Trachea, Via Natural or Artificial Opening (ICD-10-PCS; 2018-06-01)
PROC: 5A12012 Performance of Cardiac Output, Single, Manual (ICD-10-PCS; 2018-06-01)
PROC: 05HY33Z Insertion of Infusion Device into Upper Vein, Percutaneous Approach (ICD-10-PCS; 2018-06-01)
DX: A41.9 Sepsis, unspecified organism (principal); J18.9 Pneumonia, unspecified organism; N17.0 Acute kidney failure with tubular necrosis; J96.01 Acute respiratory failure with hypoxia; G93.41 Metabolic encephalopathy; N39.0 Urinary tract infection, site not specified; D62 Acute posthemorrhagic anemia; K92.2 Gastrointestinal hemorrhage, unspecified; K72.90 Hepatic failure, unspecified without coma; I10 Essential (primary) hypertension; M10.9 Gout, unspecified; F10.10 Alcohol abuse, uncomplicated; R74.0 Nonspecific elevation of levels of transaminase and lactic acid dehydrogenase [LDH]; Z66 Do not resuscitate; E83.51 Hypocalcemia; R73.9 Hyperglycemia, unspecified; K21.9 Gastro-esophageal reflux disease without esophagitis; R65.20 Severe sepsis without septic shock; Z87.442 Personal history of urinary calculi; Z72.89 Other problems related to lifestyle; Z79.899 Other long term (current) drug therapy; Z82.49 Family history of ischemic heart disease and other diseases of the circulatory system
CPT/HCPCS: 36415; 36600; 70450; 71045; 80048; 80053; 80307; 80320; 81001; 82140; 82550; 82553; 82803; 82962; 83735; 84100; 84436; 84439; 84443; 84484; 85007; 85025; 85610; 85670; 85730; 86850; 86900; 86901; 86920; 87040; 87076; 87086; 87186; 93005; 93010; 94002; 94003; 96365; 96375; G0378; C9113; G0480; J0171; J0456; J0461; J0692; J0696; J1644; J1815; J2250; J2405; J3370; J7030; J7040; J7050; J7070